=== PATIENT | male | born 1935 | race Caucasian/White ===

== ENCOUNTER 2020-08-15 08:03 | Inpatient (IN) | payer MEDICARE, BC ==
--- NOTE | 2020-08-15 08:06 | EDM.PDOC ---
ED HPI GENERAL MEDICAL PROBLEM - General Chief Complaint: Neuro Symptoms/Deficits Stated Complaint: EMT Time Seen by Provider: 08/15/20 08:04 Source of Information: Reports: Patient History Limitations: Reports: No Limitations - History of Present Illness INITIAL COMMENTS - FREE TEXT/NARRATIVE: Patient is a 84-year-old male who was brought in today for possible stroke. EMS states that patient states the patient got this morning and seemed confused he walked to the bathroom but could not find the bathroom. EMS arrived patient has some left-sided weakness upper and lower and left-sided facial droop. Patient cannot follow commands or answer questions for EMS transport. When patient got here again patient was not moving his left side not following commands but would occasionally speak and states certain phrases. Patient went on a CAT scan CAT scan performed did not see any acute findings order CTA. On the way back pt started having Movement left side and became more talkative. We took some time and spoke to the family about end-of-life care they are unclear about how they want to proceed and wanted to call and speak to the patient's son patient signed an answer phone we will attempt to continue to call at this moment patient will be full call but decision may change. We also discussed with family about TPA early in the course because we are not sure this is stroke and outpatient is moving all extremities TPA will be called off. - Related Data Allergies Allergy/AdvReac Type Severity Reaction Status Date / Time No Known Allergies Allergy Verified 08/15/20 08:19 Home Meds: Home Meds Lisinopril [Prinivil] 20 mg PO DAILY 05/25/16 [History] Simvastatin [Zocor] 40 mg PO DAILY 05/25/16 [History] Past Medical History HEENT History: Reports: Hard of Hearing, Other (See Below) Other HEENT History: Wears glasses. 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 Respiratory History: Reports: None Gastrointestinal History: Reports: None Genitourinary History: Reports: Prostate Disorder Other Genitourinary History: radical prostatectomy done by Dr Nice 6yrs ago Musculoskeletal History: Reports: None Neurological History: Reports: None Psychiatric History: Reports: None Endocrine/Metabolic History: Reports: None Hematologic History: Reports: None Immunologic History: Reports: None Oncologic (Cancer) History: Reports: Prostate Dermatologic History: Reports: None - Infectious Disease History Infectious Disease History: Reports: Chicken Pox, Measles, Mumps - Past Surgical History Cardiovascular Surgical History: Reports: Coronary Artery Bypass, Other (See Below) Social & Family History - Family History Family Medical History: No Pertinent Family History - Caffeine Use Caffeine Use: Reports: Coffee ED ROS GENERAL - Review of Systems Review Of Systems: Unable To Obtain Reason Not Obtained: mental status ED EXAM, NEURO - Physical Exam Exam: See Below Exam Limited By: Altered Mental Status General Appearance: Alert, No Apparent Distress Eye Exam: Bilateral Eye: EOMI, PERRL Throat/Mouth: Normal Inspection Head Exam: Atraumatic, Normocephalic Neck: Normal Inspection Respiratory/Chest: No Respiratory Distress, Lungs Clear, Normal Breath Sounds Cardiovascular: Normal Peripheral Pulses, Regular Rate, Rhythm GI/Abdominal: Normal Bowel Sounds, Soft, Non-Tender Neurological: Alert. No: Normal Gait, Tremor Extremities: Normal Inspection, Normal Range of Motion (strenght is now 5/5 since return ) #1 Interpretation EKG Date: 08/15/20 Time: 08:24 Rhythm: NSR Rate (Beats/Min): 73 ST-T: Normal Course - Vital Signs Last Recorded V/S: Last Vital Signs Temp 97.5 F 08/15/20 08:15 Pulse 72 08/15/20 11:30 Resp 15 08/15/20 11:30 BP 140/80 08/15/20 11:30 Pulse Ox 94 L 08/15/20 11:30 - Orders/Labs/Meds Orders: Medication Orders Acetaminophen (Acetaminophen 325 Mg Tab) 650 mg PO Q4H PRN PRN Reason: Pain (Mild 1-3)/fever Docusate Sodium (Docusate Sodium 100 Mg Cap) 100 mg PO BID PRN PRN Reason: Constipation Enoxaparin Sodium (Enoxaparin 40 Mg/0.4 Ml Syringe) 40 mg SUBCUT Q24H VA Ondansetron HCl (Ondansetron 4 Mg/2 Ml Sdv) 4 mg IVPUSH Q4H PRN PRN Reason: Nausea Sodium Chloride (Sodium Chloride 0.9% 2.5 Ml Syringe) 2.5 ml FLUSH ASDIRECTED PRN PRN Reason: Keep Vein Open Labs: Laboratory Tests 04/14/21 04/14/21 04/14/21 Range/Units 08:38 08:38 08:56 WBC 7.00 (4.0-11.0) K/uL RBC 5.25 (4.50-5.90) M/uL Hgb 15.6 (13.0-17.0) g/dL Hct 48.7 (38.0-50.0) % MCV 92.8 (80.0-98.0) fL MCH 29.7 (27.0-32.0) pg MCHC 32.0 (31.0-37.0) g/dL RDW Std Deviation 46.3 (28.0-62.0) fl RDW Coeff of Judy 14 (11.0-15.0) % Plt Count 168 (150-400) K/uL MPV 10.20 (7.40-12.00) fL Neut % (Auto) 78.3 (48.0-80.0) % Lymph % (Auto) 9.9 L (16.0-40.0) % [place] % (Auto) 11.1 (0.0-15.0) % Eos % (Auto) 0.6 (0.0-7.0) % Baso % (Auto) 0.1 (0.0-1.5) % Neut # (Auto) 5.5 (1.4-5.7) K/uL Lymph # (Auto) 0.7 (0.6-2.4) K/uL [place] # (Auto) 0.8 (0.0-0.8) K/uL Eos # (Auto) 0.0 (0.0-0.7) K/uL Baso # (Auto) 0.0 (0.0-0.1) K/uL Nucleated RBC % 0.0 /100WBC Nucleated RBCs # 0 K/uL INR APTT (18.6-31.3) SEC Sodium (136-148) mmol/L Potassium (3.5-5.1) mmol/L Chloride (98-107) mmol/L Carbon Dioxide (21.0-32.0) mmol/L BUN (7.0-18.0) mg/dL Creatinine (0.8-1.3) mg/dL Est Cr Clr Drug Dosing Estimated GFR (MDRD) ml/min Glucose (74-106) mg/dL Calcium (8.5-10.1) mg/dL Magnesium (1.8-2.4) mg/dL Total Bilirubin (0.2-1.0) mg/dL AST (15-37) IU/L ALT (14-63) IU/L Alkaline Phosphatase (46-116) U/L Troponin I (0.000-0.056) ng/mL Total Protein (6.4-8.2) g/dL Albumin (3.4-5.0) g/dL Globulin (2.6-4.0) g/dL Albumin/Globulin Ratio (0.9-1.6) Lipase (73-393) U/L Urine Color YELLOW Urine Appearance SLT CLOUDY Urine pH 5.5 (5.0-8.0) Ur Specific [place] 1.025 (1.001-1.035) Urine Protein 100 H (NEGATIVE) mg/dL Urine Glucose (UA) NEGATIVE (NEGATIVE) mg/dL Urine Ketones NEGATIVE (NEGATIVE) mg/dL Urine Occult Blood LARGE H (NEGATIVE) Urine Nitrite NEGATIVE (NEGATIVE) Urine Bilirubin NEGATIVE (NEGATIVE) Urine Urobilinogen 0.2 (<2.0) EU/dL Ur Leukocyte Esterase NEGATIVE (NEGATIVE) Urine RBC 1-4 (0-2/HPF) Urine WBC 0-2 (0-5/HPF) Ur Epithelial Cells RARE (NONE-FEW) Urine Bacteria FEW (NEGATIVE) Urine Mucus LIGHT (NONE-MOD) Urine Opiates Screen NEGATIVE (NEGATIVE) Ur Oxycodone Screen NEGATIVE (NEGATIVE) Urine Methadone Screen NEGATIVE (NEGATIVE) Ur Barbiturates Screen NEGATIVE (NEGATIVE) Ur Phencyclidine Scrn NEGATIVE (NEGATIVE) Ur Amphetamine Screen NEGATIVE (NEGATIVE) U Methamphetamines Scrn NEGATIVE (NEGATIVE) U Benzodiazepines Scrn NEGATIVE (NEGATIVE) U Cocaine Metab Screen NEGATIVE (NEGATIVE) U Marijuana (THC) Screen NEGATIVE (NEGATIVE) Ethyl Alcohol mg/dL SARS-CoV-2 RNA (BIJU) (NEGATIVE) 08/15/20 08/15/20 08/15/20 Range/Units 08:56 08:56 09:09 WBC (4.0-11.0) K/uL RBC (4.50-5.90) M/uL Hgb (13.0-17.0) g/dL Hct (38.0-50.0) % MCV (80.0-98.0) fL MCH (27.0-32.0) pg MCHC (31.0-37.0) g/dL RDW Std Deviation (28.0-62.0) fl RDW Coeff of Judy (11.0-15.0) % Plt Count (150-400) K/uL MPV (7.40-12.00) fL Neut % (Auto) (48.0-80.0) % Lymph % (Auto) (16.0-40.0) % [place] % (Auto) (0.0-15.0) % Eos % (Auto) (0.0-7.0) % Baso % (Auto) (0.0-1.5) % Neut # (Auto) (1.4-5.7) K/uL Lymph # (Auto) (0.6-2.4) K/uL [place] # (Auto) (0.0-0.8) K/uL Eos # (Auto) (0.0-0.7) K/uL Baso # (Auto) (0.0-0.1) K/uL Nucleated RBC % /100WBC Nucleated RBCs # K/uL INR 1.04 APTT 30.7 (18.6-31.3) SEC Sodium 137 (136-148) mmol/L Potassium 3.7 (3.5-5.1) mmol/L Chloride 104 (98-107) mmol/L Carbon Dioxide 22.8 (21.0-32.0) mmol/L BUN 49 H (7.0-18.0) mg/dL Creatinine 1.5 H (0.8-1.3) mg/dL Est Cr Clr Drug Dosing TNP Estimated GFR (MDRD) 44.7 ml/min Glucose 95 (74-106) mg/dL Calcium 7.9 L (8.5-10.1) mg/dL Magnesium 2.1 (1.8-2.4) mg/dL Total Bilirubin 0.9 (0.2-1.0) mg/dL AST 25 (15-37) IU/L ALT 29 (14-63) IU/L Alkaline Phosphatase 51 (46-116) U/L Troponin I < 0.050 (0.000-0.056) ng/mL Total Protein 6.7 (6.4-8.2) g/dL Albumin 3.2 L (3.4-5.0) g/dL Globulin 3.5 (2.6-4.0) g/dL Albumin/Globulin Ratio 0.9 (0.9-1.6) Lipase 169 (73-393) U/L Urine Color Urine Appearance Urine pH (5.0-8.0) Ur Specific [place] (1.001-1.035) Urine Protein (NEGATIVE) mg/dL Urine Glucose (UA) (NEGATIVE) mg/dL Urine Ketones (NEGATIVE) mg/dL Urine Occult Blood (NEGATIVE) Urine Nitrite (NEGATIVE) Urine Bilirubin (NEGATIVE) Urine Urobilinogen (<2.0) EU/dL Ur Leukocyte Esterase (NEGATIVE) Urine RBC (0-2/HPF) Urine WBC (0-5/HPF) Ur Epithelial Cells (NONE-FEW) Urine Bacteria (NEGATIVE) Urine Mucus (NONE-MOD) Urine Opiates Screen (NEGATIVE) Ur Oxycodone Screen (NEGATIVE) Urine Methadone Screen (NEGATIVE) Ur Barbiturates Screen (NEGATIVE) Ur Phencyclidine Scrn (NEGATIVE) Ur Amphetamine Screen (NEGATIVE) U Methamphetamines Scrn (NEGATIVE) U Benzodiazepines Scrn (NEGATIVE) U Cocaine Metab Screen (NEGATIVE) U Marijuana (THC) Screen (NEGATIVE) Ethyl Alcohol < 3.0 mg/dL SARS-CoV-2 RNA (BIJU) (NEGATIVE) 08/15/20 Range/Units 09:57 WBC (4.0-11.0) K/uL RBC (4.50-5.90) M/uL Hgb (13.0-17.0) g/dL Hct (38.0-50.0) % MCV (80.0-98.0) fL MCH (27.0-32.0) pg MCHC (31.0-37.0) g/dL RDW Std Deviation (28.0-62.0) fl RDW Coeff of Judy (11.0-15.0) % Plt Count (150-400) K/uL MPV (7.40-12.00) fL Neut % (Auto) (48.0-80.0) % Lymph % (Auto) (16.0-40.0) % [place] % (Auto) (0.0-15.0) % Eos % (Auto) (0.0-7.0) % Baso % (Auto) (0.0-1.5) % Neut # (Auto) (1.4-5.7) K/uL Lymph # (Auto) (0.6-2.4) K/uL [place] # (Auto) (0.0-0.8) K/uL Eos # (Auto) (0.0-0.7) K/uL Baso # (Auto) (0.0-0.1) K/uL Nucleated RBC % /100WBC Nucleated RBCs # K/uL INR APTT (18.6-31.3) SEC Sodium (136-148) mmol/L Potassium (3.5-5.1) mmol/L Chloride (98-107) mmol/L Carbon Dioxide (21.0-32.0) mmol/L BUN (7.0-18.0) mg/dL Creatinine (0.8-1.3) mg/dL Est Cr Clr Drug Dosing Estimated GFR (MDRD) ml/min Glucose (74-106) mg/dL Calcium (8.5-10.1) mg/dL Magnesium (1.8-2.4) mg/dL Total Bilirubin (0.2-1.0) mg/dL AST (15-37) IU/L ALT (14-63) IU/L Alkaline Phosphatase (46-116) U/L Troponin I (0.000-0.056) ng/mL Total Protein (6.4-8.2) g/dL Albumin (3.4-5.0) g/dL Globulin (2.6-4.0) g/dL Albumin/Globulin Ratio (0.9-1.6) Lipase (73-393) U/L Urine Color Urine Appearance Urine pH (5.0-8.0) Ur Specific [place] (1.001-1.035) Urine Protein (NEGATIVE) mg/dL Urine Glucose (UA) (NEGATIVE) mg/dL Urine Ketones (NEGATIVE) mg/dL Urine Occult Blood (NEGATIVE) Urine Nitrite (NEGATIVE) Urine Bilirubin (NEGATIVE) Urine Urobilinogen (<2.0) EU/dL Ur Leukocyte Esterase (NEGATIVE) Urine RBC (0-2/HPF) Urine WBC (0-5/HPF) Ur Epithelial Cells (NONE-FEW) Urine Bacteria (NEGATIVE) Urine Mucus (NONE-MOD) Urine Opiates Screen (NEGATIVE) Ur Oxycodone Screen (NEGATIVE) Urine Methadone Screen (NEGATIVE) Ur Barbiturates Screen (NEGATIVE) Ur Phencyclidine Scrn (NEGATIVE) Ur Amphetamine Screen (NEGATIVE) U Methamphetamines Scrn (NEGATIVE) U Benzodiazepines Scrn (NEGATIVE) U Cocaine Metab Screen (NEGATIVE) U Marijuana (THC) Screen (NEGATIVE) Ethyl Alcohol mg/dL SARS-CoV-2 RNA (BIJU) NEGATIVE (NEGATIVE) Meds: Medications Generic Name Dose Route Start Last Admin Trade Name Freq PRN Reason Stop Dose Admin Acetaminophen 650 mg 08/15/20 12:10 Acetaminophen 325 Mg Tab PO Q4H PRN Pain (Mild 1-3)/fever Docusate Sodium 100 mg 08/15/20 12:10 Docusate Sodium 100 Mg Cap PO BID PRN Constipation Enoxaparin Sodium 40 mg 08/15/20 12:30 Enoxaparin 40 Mg/0.4 Ml Syringe SUBCUT Q24H VA Ondansetron HCl 4 mg 08/15/20 12:10 Ondansetron 4 Mg/2 Ml Sdv IVPUSH Q4H PRN Nausea Sodium Chloride 2.5 ml 08/15/20 12:10 Sodium Chloride 0.9% 2.5 Ml Syringe FLUSH ASDIRECTED PRN Keep Vein Open Discontinued Medications Generic Name Dose Route Start Last Admin Trade Name Freq PRN Reason Stop Dose Admin Iopamidol 100 ml 08/15/20 09:59 08/15/20 10:00 Iopamidol 755 Mg/Ml 500 Ml Multipack Bottle IVPUSH 08/15/20 10:00 100 ml ONETIME STA Administration Departure - Departure Time of Disposition: 12:25 Disposition: Refer to Observation Clinical Impression: TIA (transient ischemic attack) - Discharge Information *PRESCRIPTION DRUG MONITORING PROGRAM REVIEWED*: Not Applicable *COPY OF PRESCRIPTION DRUG MONITORING REPORT IN PATIENT GIRISH: Not Applicable Sepsis Event Note (ED) - Focused Exam Vital Signs: Vital Signs Temp Pulse Resp BP Pulse Ox 08/15/20 10:15 72 15 144/86 H 98 08/15/20 09:45 69 17 118/70 95 08/15/20 09:30 70 15 141/79 H 97 08/15/20 09:16 88 15 124/66 97 08/15/20 09:00 73 15 148/85 H 96 08/15/20 08:45 71 17 153/85 H 99 08/15/20 08:30 74 15 169/86 H 96 08/15/20 08:15 97.5 F 75 17 157/81 H 93 L - Assessment/Plan Plan: Patient is a 4-year-old male who presents today for social call. Patient has some left-sided weakness. However after CAT scan patient seems now be back at his baseline. Patient does have history of dementia per family. Patient moves all extremities has good strength. Unclear this is a TIA or possible UTI we will continue to get labs and reassess.
--- NOTE | 2020-08-15 08:20 | CT ---
INDICATION: The mental status. TECHNIQUE: CT head without contrast. COMPARISON: None. FINDINGS: CSF spaces: Within normal limits for age. Brain parenchyma and extra-axial spaces: The handley-white differentiation is normal. No sign of mass, hemorrhage, or midline shift. No extra-axial fluid collection. Skull base and calvarium: The visualized paranasal sinuses and mastoid air cells demonstrate no acute or significant findings. The visualized orbits are grossly unremarkable. No skull fractures. IMPRESSION: Unremarkable noncontrast head CT. Please note that all CT scans at this facility use dose modulation, iterative reconstruction, and/or weight-based dosing when appropriate to reduce radiation dose to as low as reasonably achievable. Dictated by Vince Mandujano MD @ Aug 15 2020 8:12AM Signed by Dr. Vince Mandujano @ Aug 15 2020 8:19AM
--- NOTE | 2020-08-15 09:15 | CT ---
DATE: 08/15/2020 CLINICAL HISTORY: Patient with altered mental status. TECHNIQUE: Standard helical CT image acquisition through the head and neck was performed after intravenous contrast bolus enhancement. Multiplanar reconstructed images were performed and interpreted. COMPARISON: CT same day FINDINGS: There is no proximal intracranial large vessel occlusion. There is diffuse intracranial atherosclerosis. 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 The origins of the great vessels from the aortic arch are patent. The origin of the right vertebral artery is patent. The origin of the left vertebral artery is patent. The common carotid arteries are patent There is a mild (<50%) stenosis at the origin of the right internal carotid artery by NASCET criteria. This is caused by calcified plaque with a <2mm residual lumen. There is a mild (<50%) stenosis at the origin of the left internal carotid artery by NASCET criteria. This is caused by calcified plaque with a <2mm residual lumen. The rest of the cervical segments of the internal carotid arteries are patent up to their intracranial segments. The intracranial segments of the internal carotid arteries are patent. The right vertebral artery is dominant. The cervical segments of the vertebral arteries are patent. The intracranial segments of the vertebral arteries are patent. The visualized lung apices are unremarkable The thyroid gland is unremarkable. The soft tissues of the neck are unremarkable. There are degenerative changes in the cervical spine. IMPRESSION: 1. No proximal intracranial large vessel occlusion. 2. Diffuse intracranial atherosclerosis. 3. Mild (<50%) stenosis at the origins of the internal carotid arteries bilaterally. Please note that all CT scans at this facility use dose modulation, iterative reconstruction, and/or weight-based dosing when appropriate to reduce radiation dose to as low as reasonably achievable. Dictated by Floresita Montelongo MD @ Aug 15 2020 8:58AM Signed by Dr. Floresita Montelongo @ Aug 15 2020 9:13AM
[2020-08-15 09:27] LABS: BLOOD UREA NITROGEN,BUN 49 mg/dL (7.0-18.0); CARBON DIOXIDE,CO2 22.8 mmol/L (21.0-32.0); CHLORIDE,CL 104 mmol/L (98-107); GLUCOSE RANDOM 95 mg/dL (74-106); LIPASE 169 U/L (73-393); POTASSIUM,K 3.7 mmol/L (3.5-5.1); SODIUM,NA 137 mmol/L (136-148)
--- NOTE | 2020-08-15 09:36 | CR ---
HISTORY: Stroke. TECHNIQUE: Portable frontal view of the chest. COMPARISON: None. FINDINGS: Left hemidiaphragm is elevated. Left basilar atelectasis. No airspace consolidation. No pleural effusion or pneumothorax. Pulmonary vasculature is within normal limits. Sternal wires. Cardiomediastinal silhouette size is within normal limits for technique. IMPRESSION: Elevated left hemidiaphragm with left basilar atelectasis. Dictated by Greg Riggs MD @ Aug 15 2020 9:33AM Signed by Dr. Greg Riggs @ Aug 15 2020 9:33AM
[2020-08-15] MEDS ORDERED: Iopamidol 755 MG/ML 500 ML Multipack Bottle IVPUSH STA (09:59)
[2020-08-15] MEDS ORDERED: Ondansetron 4 MG/2 ML SDV IVPUSH PRN (12:10)
[2020-08-15] MEDS ORDERED: Acetaminophen 325 MG Tab PO PRN (12:10)
[2020-08-15] MEDS ORDERED: Sodium Chloride 0.9% 2.5 ML Syringe FLUSH PRN (12:10)
[2020-08-15] MEDS ORDERED: Gadobenate Dimeglumine 529 MG/ML 20 ML SDV IVPUSH STA (12:42)
[2020-08-15 12:50] LABS: HEMOGLOBIN A1C 6.1 %
--- NOTE | 2020-08-15 12:55 | PCM.HP.2 ---
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 When patient arrived to the ER he was unable to follow commands or answer questions. The noted he was at his baseline around 7:00 and around 745 is when these symptoms are noted. Patient was sent to CT for evaluation. By the time he was returning back to the ER he was nearly back to normal moving all extremities and speaking. Patient does have history of dementia. reports that she woke up early this morning around 7 and noticed that he was standing straight at the door closed. She asked him what he was doing and he reported that he was going to the bathroom even though the bathroom was behind him. She got up and helped him to the bathroom and he just seemed not himself and confused. She said they got him back to bed and then she called the ambulance. The ambulance crew was the one who noticed a left-sided weakness. Gabe is a poor historian and denies any concerns at happened this morning and is unaware of any confusion or weakness that happened this morning. He denies current chest pain shortness of breath fevers chills palpitations. He denies any concerns with abdominal pain urinary troubles or black or bloody stools. The did report mild diarrhea the past couple days but nothing significant. He does report bilateral hip pain that has been nagging him for few months. The does report he has fallen recently patient is uncertain if he fell on one hip or not but has been ambulatory at home with his walker. Patient reports tobacco use in his 20s but has not used anything since. Rare alcohol use and no recreational drug use. In the ER lab work essentially within normal limits. CBC normal. INR 1.04 so dium 137, potassium 3.7, BUN 49, creatinine 1.5 which is at baseline. Glucose 95 AST ALT and bilirubin all within normal limits troponin negative. Lipase 169. EKG in the ER obtained which revealed sinus rhythm with no ST or T wave changes heart rate 73. Chest x-ray obtained showed elevation of left hemidiaphragm with left basilar atelectasis. Head CT obtained for stroke protocol which revealed no intracranial abnormalities. CTA of head and neck obtained to further rule out thrombotic stroke. Head CT revealed no proximal intracranial large vessel occlusion. Diffuse intracranial atherosclerosis. Common carotid arteries are patent. There is mild less than 50% stenosis at the origins of the internal carotid arteries bilaterally. Patient was ruled out for TPA as he became normal within the ER. There was discussion among family if he would want this or if the POA who is the son would want this. The son was contacted but unsure of decision at this time. Patient will be admitted for TIA possible CVA work-up. PCP Dr. العراقي - Related Data Allergies/Adverse Reactions: Allergies Allergy/AdvReac Type Severity Reaction Status Date / Time No Known Allergies Allergy Verified 08/15/20 14:31 Home Medications: Home Meds Lisinopril [Prinivil] 20 mg PO DAILY 05/25/16 [History] Simvastatin [Zocor] 40 mg PO DAILY 05/25/16 [History] Past Medical History HEENT History: Reports: Hard of Hearing, Other (See Below) Other HEENT History: Wears glasses. right hearing aid Cardiovascular History: Reports: Bypass, CAD, High Cholesterol, Hypertension, SOB on Exertion. Denies: Afib, Blood Clots/VTE/DVT Other Cardiovascular History: quad bypass 20 yrs ago Respiratory History: Reports: None. Denies: COPD Gastrointestinal History: Reports: None. Denies: GI Bleed Genitourinary History: Reports: Prostate Disorder Other Genitourinary History: radical prostatectomy done by Dr Nice 6yrs ago Musculoskeletal History: Reports: None Neurological History: Reports: None Psychiatric History: Reports: None Endocrine/Metabolic History: Reports: None Hematologic History: Reports: None Immunologic History: Reports: None Oncologic (Cancer) History: Reports: Prostate Dermatologic History: Reports: None - Infectious Disease History Infectious Disease History: Reports: Chicken Pox, Measles, Mumps - Past Surgical History Head Surgeries/Procedures: Reports: None HEENT Surgical History: Reports: None Cardiovascular Surgical History: Reports: Coronary Artery Bypass, Other (See Below) Other Cardiovascular Surgeries/Procedures: Quadruple bypass GI Surgical History: Reports: None Male Surgical History: Reports: Prostatectomy Endocrine Surgical History: Reports: None Neurological Surgical History: Reports: None Musculoskeletal Surgical History: Reports: None Dermatological Surgical History: Reports: None Social & Family History - Family History Family Medical History: No Pertinent Family History - Tobacco Use Tobacco Use Status *Q: Never Tobacco User - Caffeine Use Caffeine Use: Reports: Coffee - Alcohol Use Alcohol Use Frequency: Rarely - Recreational Drug Use Recreational Drug Use: No - Living Situation & Occupation Living situation: Reports: Occupation: Retired ([employer]) H&P Review of Systems - Review of Systems: Review Of Systems: See Below General: Reports: Weakness (Generalized). Denies: Fever, Chills, Malaise, Fatigue HEENT: Reports: No Symptoms. Denies: Headaches, Sinus Congestion, Sore Throat, Vertigo Pulmonary: Reports: No Symptoms. Denies: Shortness of Breath Cardiovascular: Reports: No Symptoms. Denies: Chest Pain Gastrointestinal: Reports: No Symptoms. Denies: Abdominal Pain, Black Stool, Bloody Stool, Nausea, Vomiting Genitourinary: Reports: No Symptoms. Denies: Dysuria, Frequency Musculoskeletal: Reports: Joint Pain (Bilateral hip pain with movement) Skin: Reports: No Symptoms. Denies: Wound Psychiatric: Reports: No Symptoms. Denies: Anxiety Neurological: Reports: Difficulty Walking (Slight unsteady gait). Denies: Confusion, Tremors, Trouble Speaking Hematologic/Lymphatic: Reports: No Symptoms Immunologic: Reports: No Symptoms Exam - Exam Exam: See Below - Vital Signs Vital Signs: Last Vital Signs Temp 97.5 F 08/15/20 08:15 Pulse 72 08/15/20 11:30 Resp 15 08/15/20 11:30 BP 140/80 08/15/20 11:30 Pulse Ox 94 L 08/15/20 11:30 Weight: 90 kg - Exam Quality Assessment: DVT Prophylaxis. No: Supplemental Oxygen General: Alert, Oriented, Cooperative HEENT: Conjunctiva Clear, Mucosa Moist & [place], Posterior Pharynx Clear Lungs: Clear to Auscultation, Normal Respiratory Effort Cardiovascular: Regular Rate, Regular Rhythm GI/Abdominal Exam: Normal Bowel Sounds, Soft, Non-Tender Extremities: Normal Inspection, Normal Range of Motion, Non-Tender, No Pedal Edema Skin: Warm, Dry Neurological: Cranial Nerves Intact, Strength Equal Bilateral, Normal Speech, Normal Tone. No: Normal Gait (Slight unsteady gait but otherwise normal) Neuro Extensive - Mental Status: Alert, Oriented x3, Normal Mood/Affect Neuro Extensive - Motor, Sensory, Reflexes: CN II-XII Intact. No: Pronator Drift (R), Pronator Drift (L), Abnormal Finger to Nose Psychiatric: Alert, Normal Affect, Normal Mood - Patient Data Lab Results Last 24 hrs: Laboratory Results - last 24 hr 08/15/20 08/15/20 08/15/20 Range/Units 08:38 08:38 08:56 WBC 7.00 (4.0-11.0) K/uL RBC 5.25 (4.50-5.90) M/uL Hgb 15.6 (13.0-17.0) g/dL Hct 48.7 (38.0-50.0) % MCV 92.8 (80.0-98.0) fL MCH 29.7 (27.0-32.0) pg MCHC 32.0 (31.0-37.0) g/dL RDW Std Deviation 46.3 (28.0-62.0) fl RDW Coeff of Judy 14 (11.0-15.0) % Plt Count 168 (150-400) K/uL MPV 10.20 (7.40-12.00) fL Neut % (Auto) 78.3 (48.0-80.0) % Lymph % (Auto) 9.9 L (16.0-40.0) % [place] % (Auto) 11.1 (0.0-15.0) % Eos % (Auto) 0.6 (0.0-7.0) % Baso % (Auto) 0.1 (0.0-1.5) % Neut # (Auto) 5.5 (1.4-5.7) K/uL Lymph # (Auto) 0.7 (0.6-2.4) K/uL [place] # (Auto) 0.8 (0.0-0.8) K/uL Eos # (Auto) 0.0 (0.0-0.7) K/uL Baso # (Auto) 0.0 (0.0-0.1) K/uL Nucleated RBC % 0.0 /100WBC Nucleated RBCs # 0 K/uL INR APTT (18.6-31.3) SEC Sodium (136-148) mmol/L Potassium (3.5-5.1) mmol/L Chloride (98-107) mmol/L Carbon Dioxide (21.0-32.0) mmol/L BUN (7.0-18.0) mg/dL Creatinine (0.8-1.3) mg/dL Est Cr Clr Drug Dosing Estimated GFR (MDRD) ml/min Glucose (74-106) mg/dL Calcium (8.5-10.1) mg/dL Magnesium (1.8-2.4) mg/dL Total Bilirubin (0.2-1.0) mg/dL AST (15-37) IU/L ALT (14-63) IU/L Alkaline Phosphatase (46-116) U/L Troponin I (0.000-0.056) ng/mL Total Protein (6.4-8.2) g/dL Albumin (3.4-5.0) g/dL Globulin (2.6-4.0) g/dL Albumin/Globulin Ratio (0.9-1.6) Lipase (73-393) U/L Urine Color YELLOW Urine Appearance SLT CLOUDY Urine pH 5.5 (5.0-8.0) Ur Specific [place] 1.025 (1.001-1.035) Urine Protein 100 H (NEGATIVE) mg/dL Urine Glucose (UA) NEGATIVE (NEGATIVE) mg/dL Urine Ketones NEGATIVE (NEGATIVE) mg/dL Urine Occult Blood LARGE H (NEGATIVE) Urine Nitrite NEGATIVE (NEGATIVE) Urine Bilirubin NEGATIVE (NEGATIVE) Urine Urobilinogen 0.2 (<2.0) EU/dL Ur Leukocyte Esterase NEGATIVE (NEGATIVE) Urine RBC 1-4 (0-2/HPF) Urine WBC 0-2 (0-5/HPF) Ur Epithelial Cells RARE (NONE-FEW) Urine Bacteria FEW (NEGATIVE) Urine Mucus LIGHT (NONE-MOD) Urine Opiates Screen NEGATIVE (NEGATIVE) Ur Oxycodone Screen NEGATIVE (NEGATIVE) Urine Methadone Screen NEGATIVE (NEGATIVE) Ur Barbiturates Screen NEGATIVE (NEGATIVE) Ur Phencyclidine Scrn NEGATIVE (NEGATIVE) Ur Amphetamine Screen NEGATIVE (NEGATIVE) U Methamphetamines Scrn NEGATIVE (NEGATIVE) U Benzodiazepines Scrn NEGATIVE (NEGATIVE) U Cocaine Metab Screen NEGATIVE (NEGATIVE) U Marijuana (THC) Screen NEGATIVE (NEGATIVE) Ethyl Alcohol mg/dL SARS-CoV-2 RNA (BIJU) (NEGATIVE) 08/15/20 08/15/20 08/15/20 Range/Units 08:56 08:56 09:09 WBC (4.0-11.0) K/uL RBC (4.50-5.90) M/uL Hgb (13.0-17.0) g/dL Hct (38.0-50.0) % MCV (80.0-98.0) fL MCH (27.0-32.0) pg MCHC (31.0-37.0) g/dL RDW Std Deviation (28.0-62.0) fl RDW Coeff of Judy (11.0-15.0) % Plt Count (150-400) K/uL MPV (7.40-12.00) fL Neut % (Auto) (48.0-80.0) % Lymph % (Auto) (16.0-40.0) % [place] % (Auto) (0.0-15.0) % Eos % (Auto) (0.0-7.0) % Baso % (Auto) (0.0-1.5) % Neut # (Auto) (1.4-5.7) K/uL Lymph # (Auto) (0.6-2.4) K/uL [place] # (Auto) (0.0-0.8) K/uL Eos # (Auto) (0.0-0.7) K/uL Baso # (Auto) (0.0-0.1) K/uL Nucleated RBC % /100WBC Nucleated RBCs # K/uL INR 1.04 APTT 30.7 (18.6-31.3) SEC Sodium 137 (136-148) mmol/L Potassium 3.7 (3.5-5.1) mmol/L Chloride 104 (98-107) mmol/L Carbon Dioxide 22.8 (21.0-32.0) mmol/L BUN 49 H (7.0-18.0) mg/dL Creatinine 1.5 H (0.8-1.3) mg/dL Est Cr Clr Drug Dosing TNP Estimated GFR (MDRD) 44.7 ml/min Glucose 95 (74-106) mg/dL Calcium 7.9 L (8.5-10.1) mg/dL Magnesium 2.1 (1.8-2.4) mg/dL Total Bilirubin 0.9 (0.2-1.0) mg/dL AST 25 (15-37) IU/L ALT 29 (14-63) IU/L Alkaline Phosphatase 51 (46-116) U/L Troponin I < 0.050 (0.000-0.056) ng/mL Total Protein 6.7 (6.4-8.2) g/dL Albumin 3.2 L (3.4-5.0) g/dL Globulin 3.5 (2.6-4.0) g/dL Albumin/Globulin Ratio 0.9 (0.9-1.6) Lipase 169 (73-393) U/L Urine Color Urine Appearance Urine pH (5.0-8.0) Ur Specific [place] (1.001-1.035) Urine Protein (NEGATIVE) mg/dL Urine Glucose (UA) (NEGATIVE) mg/dL Urine Ketones (NEGATIVE) mg/dL Urine Occult Blood (NEGATIVE) Urine Nitrite (NEGATIVE) Urine Bilirubin (NEGATIVE) Urine Urobilinogen (<2.0) EU/dL Ur Leukocyte Esterase (NEGATIVE) Urine RBC (0-2/HPF) Urine WBC (0-5/HPF) Ur Epithelial Cells (NONE-FEW) Urine Bacteria (NEGATIVE) Urine Mucus (NONE-MOD) Urine Opiates Screen (NEGATIVE) Ur Oxycodone Screen (NEGATIVE) Urine Methadone Screen (NEGATIVE) Ur Barbiturates Screen (NEGATIVE) Ur Phencyclidine Scrn (NEGATIVE) Ur Amphetamine Screen (NEGATIVE) U Methamphetamines Scrn (NEGATIVE) U Benzodiazepines Scrn (NEGATIVE) U Cocaine Metab Screen (NEGATIVE) U Marijuana (THC) Screen (NEGATIVE) Ethyl Alcohol < 3.0 mg/dL SARS-CoV-2 RNA (BIJU) (NEGATIVE) 08/15/20 Range/Units 09:57 WBC (4.0-11.0) K/uL RBC (4.50-5.90) M/uL Hgb (13.0-17.0) g/dL Hct (38.0-50.0) % MCV (80.0-98.0) fL MCH (27.0-32.0) pg MCHC (31.0-37.0) g/dL RDW Std Deviation (28.0-62.0) fl RDW Coeff of Judy (11.0-15.0) % Plt Count (150-400) K/uL MPV (7.40-12.00) fL Neut % (Auto) (48.0-80.0) % Lymph % (Auto) (16.0-40.0) % [place] % (Auto) (0.0-15.0) % Eos % (Auto) (0.0-7.0) % Baso % (Auto) (0.0-1.5) % Neut # (Auto) (1.4-5.7) K/uL Lymph # (Auto) (0.6-2.4) K/uL [place] # (Auto) (0.0-0.8) K/uL Eos # (Auto) (0.0-0.7) K/uL Baso # (Auto) (0.0-0.1) K/uL Nucleated RBC % /100WBC Nucleated RBCs # K/uL INR APTT (18.6-31.3) SEC Sodium (136-148) mmol/L Potassium (3.5-5.1) mmol/L Chloride (98-107) mmol/L Carbon Dioxide (21.0-32.0) mmol/L BUN (7.0-18.0) mg/dL Creatinine (0.8-1.3) mg/dL Est Cr Clr Drug Dosing Estimated GFR (MDRD) ml/min Glucose (74-106) mg/dL Calcium (8.5-10.1) mg/dL Magnesium (1.8-2.4) mg/dL Total Bilirubin (0.2-1.0) mg/dL AST (15-37) IU/L ALT (14-63) IU/L Alkaline Phosphatase (46-116) U/L Troponin I (0.000-0.056) ng/mL Total Protein (6.4-8.2) g/dL Albumin (3.4-5.0) g/dL Globulin (2.6-4.0) g/dL Albumin/Globulin Ratio (0.9-1.6) Lipase (73-393) U/L Urine Color Urine Appearance Urine pH (5.0-8.0) Ur Specific [place] (1.001-1.035) Urine Protein (NEGATIVE) mg/dL Urine Glucose (UA) (NEGATIVE) mg/dL Urine Ketones (NEGATIVE) mg/dL Urine Occult Blood (NEGATIVE) Urine Nitrite (NEGATIVE) Urine Bilirubin (NEGATIVE) Urine Urobilinogen (<2.0) EU/dL Ur Leukocyte Esterase (NEGATIVE) Urine RBC (0-2/HPF) Urine WBC (0-5/HPF) Ur Epithelial Cells (NONE-FEW) Urine Bacteria (NEGATIVE) Urine Mucus (NONE-MOD) Urine Opiates Screen (NEGATIVE) Ur Oxycodone Screen (NEGATIVE) Urine Methadone Screen (NEGATIVE) Ur Barbiturates Screen (NEGATIVE) Ur Phencyclidine Scrn (NEGATIVE) Ur Amphetamine Screen (NEGATIVE) U Methamphetamines Scrn (NEGATIVE) U Benzodiazepines Scrn (NEGATIVE) U Cocaine Metab Screen (NEGATIVE) U Marijuana (THC) Screen (NEGATIVE) Ethyl Alcohol mg/dL SARS-CoV-2 RNA (BIJU) NEGATIVE (NEGATIVE) Result Diagrams: 08/15/20 08:56 08/15/20 08:56 Sepsis Event Note - Evaluation Sepsis Screening Result: No Definite Risk - Focused Exam Vital Signs: Vital Signs Temp Pulse Resp BP Pulse Ox 08/15/20 11:30 72 15 140/80 94 L 08/15/20 10:45 69 16 139/84 95 08/15/20 10:15 72 15 144/86 H 98 08/15/20 09:45 69 17 118/70 95 08/15/20 09:30 70 15 141/79 H 97 08/15/20 09:16 88 15 124/66 97 08/15/20 09:00 73 15 148/85 H 96 08/15/20 08:45 71 17 153/85 H 99 08/15/20 08:30 74 15 169/86 H 96 08/15/20 08:15 97.5 F 75 17 157/81 H 93 L - Problem List (1) TIA (transient ischemic attack) SNOMED Code(s): 483018136 ICD Code: G45.9 - TRANSIENT CEREBRAL ISCHEMIC ATTACK, UNSPECIFIED Status: Acute Current Visit: Yes (2) CVA (cerebral vascular accident) SNOMED Code(s): 389842615 ICD Code: I63.9 - CEREBRAL INFARCTION, UNSPECIFIED Status: Suspected Current Visit: Yes (3) HTN (hypertension) SNOMED Code(s): 60187342 ICD Code: I10 - ESSENTIAL (PRIMARY) HYPERTENSION Status: Chronic Current Visit: Yes (4) History of coronary artery bypass graft SNOMED Code(s): 168946398, 488723259 ICD Code: Z95.1 - PRESENCE OF AORTOCORONARY BYPASS GRAFT Status: Chronic Current Visit: Yes (5) HLD (hyperlipidemia) SNOMED Code(s): 70406407 ICD Code: E78.5 - HYPERLIPIDEMIA, UNSPECIFIED Status: Chronic Current Visit: Yes (6) CAD (coronary artery disease) SNOMED Code(s): 45794634 ICD Code: I25.10 - ATHSCL HEART DISEASE OF [place] CORONARY ARTERY W/O ANG PCTRS Status: Chronic Current Visit: Yes (7) Dementia SNOMED Code(s): 14853286 ICD Code: F03.90 - UNSPECIFIED DEMENTIA WITHOUT BEHAVIORAL DISTURBANCE Status: Chronic Current Visit: Yes (8) History of radical prostatectomy SNOMED Code(s): 719964112038247, 609860575074455 ICD Code: Z90.79 - ACQUIRED ABSENCE OF OTHER GENITAL ORGAN(S) Status: Chronic Current Visit: Yes Problem List Initiated/Reviewed/Updated: Yes Orders Last 24hrs: Active Orders 24 hr Category Date Time Status Patient Status [ADT] Routine ADT 08/15/20 10:27 Active Height and Weight [RC] DAILY Care 08/15/20 12:10 Active Intake and Output [RC] QSHIFT Care 08/15/20 12:10 Active Nursing Bedside Swallow Screen [RC] ASDIRECTED Care 08/15/20 12:17 Active Oxygen Therapy [RC] PRN Care 08/15/20 12:10 Active Telemetry Monitoring [Cardiac Monitoring] [RC] . Care 08/15/20 12:16 Active DIRECTED Up With Assistance [RC] ASDIRECTED Care 08/15/20 12:10 Active VTE/DVT Education [RC] PER UNIT ROUTINE Care 08/15/20 12:10 Active Vital Signs [RC] Q4H Care 08/15/20 12:10 Active Heart Healthy Diet [DIET] Diet 08/15/20 Lunch Active Brain w wo Cont [MR] Routine Exams 08/15/20 12:08 Ordered Echo Comp wo Cont [US] Routine Exams 08/15/20 12:17 Ordered BASIC METABOLIC PANEL,BMP [CHEM] AM Lab 08/16/20 05:11 Ordered CBC WITH AUTO DIFF [HEME] AM Lab 08/16/20 05:11 Ordered GLYCOSYLATED HEMOGLOBIN,HGBA1C [CHEM] Routine Lab 08/15/20 08:56 Received LIPID PANEL [CHEM] AM Lab 08/16/20 05:11 Ordered MAGNESIUM [CHEM] AM Lab 08/16/20 05:11 Ordered TSH [CHEM] Routine Lab 08/15/20 12:45 Ordered Acetaminophen [TylenoL] Med 08/15/20 12:10 Active 650 mg PO Q4H PRN Docusate Sodium [Colace] Med 08/15/20 12:10 Active 100 mg PO BID PRN Enoxaparin [Lovenox] Med 08/15/20 12:30 Active 40 mg SUBCUT Q24H Ondansetron [Zofran] Med 08/15/20 12:10 Active 4 mg IVPUSH Q4H PRN Sodium Chloride 0.9% [Saline Flush] Med 08/15/20 12:10 Active 2.5 ml FLUSH ASDIRECTED PRN Saline Lock Insert [OM.PC] Routine Oth 08/15/20 12:10 Ordered Medication Orders Acetaminophen (Acetaminophen 325 Mg Tab) 650 mg PO Q4H PRN PRN Reason: Pain (Mild 1-3)/fever Docusate Sodium (Docusate Sodium 100 Mg Cap) 100 mg PO BID PRN PRN Reason: Constipation Enoxaparin Sodium (Enoxaparin 40 Mg/0.4 Ml Syringe) 40 mg SUBCUT Q24H VA Ondansetron HCl (Ondansetron 4 Mg/2 Ml Sdv) 4 mg IVPUSH Q4H PRN PRN Reason: Nausea Sodium Chloride (Sodium Chloride 0.9% 2.5 Ml Syringe) 2.5 ml FLUSH ASDIRECTED PRN PRN Reason: Keep Vein Open Assessment/Plan Comment:: This 84-year-old male admitted with TIA, possible CVA. 1. TIA, possible CVA -We will order brain MRI with and without contrast to further evaluate for acute stroke -We will order echo, transthoracic -Obtain TSH, lipid and A1c -Monitor on telemetry to evaluate for arrhythmia -Allow for permissive hypertension -ASA 325 now and then 81 daily daily -Neurochecks every 4 hours -Bedside swallow eval per nursing 2. Bilateral hip pain - reports recent fall due to unsteady gait -We will obtain bilateral hip and pelvis x-rays 3. History HTN, CAD -Continue statin -Add aspirin -Allow for permissive hypertension with possible CVA VTE prophylaxis: Lovenox CODE STATUS DNR/DNI, discussed further aggressive measures with and patient especially the use of TPA if recurrent stroke were to occur. They are uncertain if they would want this but they will think about it and let us know. Dispo 1 to 2 days.
[2020-08-15] MEDS: Enoxaparin 40 MG/0.4 ML Syringe SUBCUT SCH (14:03)
--- NOTE | 2020-08-15 14:10 | MR ---
Indication: Left-sided weakness. Technique: T1 sagittal as well as diffusion, FLAIR and T2 axial sequences were obtained. Post gadolinium T1 sequences were obtained. Contrast: 17 cc MultiHance. Comparison: 10/08/2016. Findings: No acute infarct or restricted diffusion is identified. No mass lesion or ventricular obstruction. No evidence for abnormal gadolinium enhancement involving the meninges, calvarium or skull base. Small foci of susceptibility artifact are again noted in the right cerebellum and right occipital lobe, compatible with micro hemorrhages. Differential possibilities include hypertension and amyloid angiopathy. These are stable from 10/08/2016. No evidence for recent hemorrhage. A few tiny foci of T2 signal abnormality are scattered in the white matter of the cerebral hemispheres, typical for mild small vessel ischemic change and stable from 10/08/2016. Mild symmetric cerebral atrophy is also unchanged. Grossly normal flow voids are maintained in the directly imaged intracranial vascular structures. The craniovertebral junction is unremarkable, with a patent foramen magnum. Both temporal bones are clear. The paranasal sinuses are essentially clear. Impression: 1. No evident change from 10/08/2016. 2. No acute pathology identified. No evidence for mass, hemorrhage, recent infarct or pathologic gadolinium enhancement. 3. Mild small vessel ischemic changes and mild cerebral atrophy are stable from 10/08/2016. Dictated by Flaquito Loja MD @ Aug 15 2020 1:55PM Signed by Dr. Flaquito Loja @ Aug 15 2020 2:09PM
[2020-08-15] MEDS ORDERED: Aspirin 325 MG Tab PO ONE (14:23)
[2020-08-15] MEDS ORDERED: Labetalol 100 MG/20 ML MDV IVPUSH PRN (14:23)
[2020-08-15] MEDS: Simvastatin 40 MG Tab PO SCH (20:32)
[2020-08-16 07:13] LABS: CARBON DIOXIDE,CO2 20.9 mmol/L (21.0-32.0); POTASSIUM,K 3.5 mmol/L (3.5-5.1)
[2020-08-16] MEDS ORDERED: Lisinopril 10 MG Tab PO SCH (09:00)
[2020-08-16] MEDS: Aspirin 81 MG Tab.EC PO SCH (09:18)
--- NOTE | 2020-08-16 09:26 | CR ---
Indication: Trauma, fall with bilateral hip pain Technique: Pelvis and bilateral hip 5 views Comparison: None Findings: Bones: Alignment is normal. No fractures or bone lesions. Joint spaces: Moderate bilateral hip joint osteoarthritis. Soft tissues: Unremarkable. Impression: No sign of acute injury. There is moderate bilateral hip joint arthritis. Dictated by Vince Mandujano MD @ Aug 16 2020 9:14AM Signed by Dr. Vince Mandujano @ Aug 16 2020 9:24AM
[2020-08-16] MEDS ORDERED: Sodium Chloride 0.9% 1,000 ML IV ONE (10:43)
--- NOTE | 2020-08-16 10:43 | PCM.PN ---
- General Info Date of Service: 08/16/20 Admission Dx/Problem (Free Text): Admission Diagnosis/Problem Admission Diagnosis/Problem TIA, Transient ischemic attack Subjective Update: Reports he is not feeling as perky today. Denies any chest pain shortness of breath or palpitations. No abdominal pain. He reports hips are feeling better today. Does report that he feels slightly dizzy when he gets up and ambulates. Nursing has reported many episodes that he has become dizzy and lightheaded after walking. Functional Status: Reports: Pain Controlled, Tolerating Diet, Ambulating, Urinating - Review of Systems General: Reports: No Symptoms. Denies: Fever, Weakness, Fatigue HEENT: Reports: No Symptoms. Denies: Headaches, Sore Throat Pulmonary: Reports: No Symptoms. Denies: Shortness of Breath Cardiovascular: Reports: No Symptoms. Denies: Chest Pain Gastrointestinal: Reports: No Symptoms. Denies: Abdominal Pain, Nausea, Vomiting Genitourinary: Reports: No Symptoms. Denies: Dysuria, Frequency, Burning Musculoskeletal: Reports: No Symptoms Skin: Reports: No Symptoms Neurological: Reports: Dizziness. Denies: Trouble Speaking Psychiatric: Reports: No Symptoms - Patient Data Vitals - Most Recent: Last Vital Signs Temp 97 F 08/16/20 08:00 Pulse 74 08/16/20 08:00 Resp 16 08/16/20 08:00 BP 93/55 L 08/16/20 09:16 Pulse Ox 95 08/16/20 08:00 Weight - Most Recent: 83 kg I&O - Last 24 Hours: Intake & Output 08/15/20 08/16/20 08/16/20 22:59 06:59 14:59 Intake Total 200 200 Output Total 100 325 Balance 100 -125 Lab Results Last 24 Hours: Laboratory Results - last 24 hr 08/15/20 08/15/20 08/15/20 Range/Units 08:56 08:56 08:56 WBC (4.0-11.0) K/uL RBC (4.50-5.90) M/uL Hgb (13.0-17.0) g/dL Hct (38.0-50.0) % MCV (80.0-98.0) fL MCH (27.0-32.0) pg MCHC (31.0-37.0) g/dL RDW Std Deviation (28.0-62.0) fl RDW Coeff of [place] (11.0-15.0) % Plt Count (150-400) K/uL MPV (7.40-12.00) fL Neut % (Auto) (48.0-80.0) % Lymph % (Auto) (16.0-40.0) % [place] % (Auto) (0.0-15.0) % Eos % (Auto) (0.0-7.0) % Baso % (Auto) (0.0-1.5) % Neut # (Auto) (1.4-5.7) K/uL Lymph # (Auto) (0.6-2.4) K/uL [place] # (Auto) (0.0-0.8) K/uL Eos # (Auto) (0.0-0.7) K/uL Baso # (Auto) (0.0-0.1) K/uL Nucleated RBC % /100WBC Nucleated RBCs # K/uL Sodium (136-148) mmol/L Potassium (3.5-5.1) mmol/L Chloride (98-107) mmol/L Carbon Dioxide (21.0-32.0) mmol/L BUN (7.0-18.0) mg/dL Creatinine (0.8-1.3) mg/dL Est Cr Clr Drug Dosing mL/min Estimated GFR (MDRD) ml/min Glucose (74-106) mg/dL Hemoglobin A1c 6.1 (4.5 - 6.2) % Calcium (8.5-10.1) mg/dL Magnesium (1.8-2.4) mg/dL Troponin I < 0.050 (0.000-0.056) ng/mL Triglycerides (0-200) mg/dL Cholesterol (50-200) mg/dL LDL Cholesterol, Calc (60-180) mg/dL VLDL Cholesterol (5-55) mg/dL HDL Cholesterol (40-60) mg/dL Cholesterol/HDL Ratio (3.3-6.0) TSH 3rd Generation 2.07 (0.36-3.74) uIU/mL SARS-CoV-2 RNA (BIJU) (NEGATIVE) 08/15/20 08/16/20 08/16/20 Range/Units 09:57 06:41 06:41 WBC 6.47 (4.0-11.0) K/uL RBC 5.04 (4.50-5.90) M/uL Hgb 15.0 (13.0-17.0) g/dL Hct 46.1 (38.0-50.0) % MCV 91.5 (80.0-98.0) fL MCH 29.8 (27.0-32.0) pg MCHC 32.5 (31.0-37.0) g/dL RDW Std Deviation 44.1 (28.0-62.0) fl RDW Coeff of Judy 13 (11.0-15.0) % Plt Count 168 (150-400) K/uL MPV 10.30 (7.40-12.00) fL Neut % (Auto) 80.2 H (48.0-80.0) % Lymph % (Auto) 9.9 L (16.0-40.0) % [place] % (Auto) 8.5 (0.0-15.0) % Eos % (Auto) 1.1 (0.0-7.0) % Baso % (Auto) 0.3 (0.0-1.5) % Neut # (Auto) 5.2 (1.4-5.7) K/uL Lymph # (Auto) 0.6 (0.6-2.4) K/uL [place] # (Auto) 0.6 (0.0-0.8) K/uL Eos # (Auto) 0.1 (0.0-0.7) K/uL Baso # (Auto) 0.0 (0.0-0.1) K/uL Nucleated RBC % 0.0 /100WBC Nucleated RBCs # 0 K/uL Sodium 139 (136-148) mmol/L Potassium 3.5 (3.5-5.1) mmol/L Chloride 105 (98-107) mmol/L Carbon Dioxide 20.9 L (21.0-32.0) mmol/L BUN 47 H (7.0-18.0) mg/dL Creatinine 1.3 (0.8-1.3) mg/dL Est Cr Clr Drug Dosing 43.05 mL/min Estimated GFR (MDRD) 52.7 ml/min Glucose 110 H (74-106) mg/dL Hemoglobin A1c (4.5 - 6.2) % Calcium 8.0 L (8.5-10.1) mg/dL Magnesium 2.2 (1.8-2.4) mg/dL Troponin I (0.000-0.056) ng/mL Triglycerides 117 (0-200) mg/dL Cholesterol 135 (50-200) mg/dL LDL Cholesterol, Calc 73 (60-180) mg/dL VLDL Cholesterol 23 (5-55) mg/dL HDL Cholesterol 39 L (40-60) mg/dL Cholesterol/HDL Ratio 3.5 (3.3-6.0) TSH 3rd Generation (0.36-3.74) uIU/mL SARS-CoV-2 RNA (BIJU) NEGATIVE (NEGATIVE) Med Orders - Current: Current Medications Acetaminophen (Acetaminophen 325 Mg Tab) 650 mg PO Q4H PRN PRN Reason: Pain (Mild 1-3)/fever Aspirin (Aspirin 81 Mg Tab.Ec) 81 mg PO DAILY [facility] Last Admin: 08/16/20 09:18 Dose: 81 mg Documented by: Docusate Sodium (Docusate Sodium 100 Mg Cap) 100 mg PO BID PRN PRN Reason: Constipation Enoxaparin Sodium (Enoxaparin 40 Mg/0.4 Ml Syringe) 40 mg SUBCUT Q24H [facility] Last Admin: 08/15/20 14:03 Dose: 40 mg Documented by: Labetalol HCl (Labetalol 100 Mg/20 Ml Mdv) 10 mg IVPUSH Q4H PRN PRN Reason: SBP>220 Lisinopril (Lisinopril 10 Mg Tab) 20 mg PO DAILY [facility] Last Admin: 08/16/20 09:16 Dose: 20 mg Documented by: Ondansetron HCl (Ondansetron 4 Mg/2 Ml Sdv) 4 mg IVPUSH Q4H PRN PRN Reason: Nausea Simvastatin (Simvastatin 40 Mg Tab) 40 mg PO BEDTIME [facility] Last Admin: 08/15/20 20:32 Dose: 40 mg Documented by: Sodium Chloride (Sodium Chloride 0.9% 2.5 Ml Syringe) 2.5 ml FLUSH ASDIRECTED PRN PRN Reason: Keep Vein Open Discontinued Medications Aspirin (Aspirin 325 Mg Tab) 325 mg PO ONETIME ONE Stop: 08/15/20 14:24 Last Admin: 08/15/20 15:21 Dose: 325 mg Documented by: Gadobenate Dimeglumine (Gadobenate Dime[place]umine 529 Mg/Ml 20 Ml Sdv) 20 ml IVPUSH ONETIME STA Stop: 08/15/20 12:43 Last Admin: 08/15/20 12:42 Dose: 17 ml Documented by: Iopamidol (Iopamidol 755 Mg/Ml 500 Ml Multipack Bottle) 100 ml IVPUSH ONETIME STA Stop: 08/15/20 10:00 Last Admin: 08/15/20 10:00 Dose: 100 ml Documented by: - Exam General: Alert, Oriented, Cooperative, No Acute Distress Neck: Supple Lungs: Clear to Auscultation, Normal Respiratory Effort Cardiovascular: Regular Rate, Regular Rhythm GI/Abdominal Exam: Normal Bowel Sounds, Soft, Non-Tender Extremities: Normal Inspection, Normal Range of Motion, Non-Tender, No Pedal Edema Wound/Incisions: Healing Well Neurological: No New Focal Deficit, Normal Gait, Other (Has some dizziness after getting up from laying or sitting position.) Psy/Mental Status: Alert, Normal Affect, Normal Mood - Patient Data Lab Results Last 24 hrs: Laboratory Results - last 24 hr 08/15/20 08/15/20 08/15/20 Range/Units 08:56 08:56 08:56 WBC (4.0-11.0) K/uL RBC (4.50-5.90) M/uL Hgb (13.0-17.0) g/dL Hct (38.0-50.0) % MCV (80.0-98.0) fL MCH (27.0-32.0) pg MCHC (31.0-37.0) g/dL RDW Std Deviation (28.0-62.0) fl RDW Coeff of Judy (11.0-15.0) % Plt Count (150-400) K/uL MPV (7.40-12.00) fL Neut % (Auto) (48.0-80.0) % Lymph % (Auto) (16.0-40.0) % [place] % (Auto) (0.0-15.0) % Eos % (Auto) (0.0-7.0) % Baso % (Auto) (0.0-1.5) % Neut # (Auto) (1.4-5.7) K/uL Lymph # (Auto) (0.6-2.4) K/uL [place] # (Auto) (0.0-0.8) K/uL Eos # (Auto) (0.0-0.7) K/uL Baso # (Auto) (0.0-0.1) K/uL Nucleated RBC % /100WBC Nucleated RBCs # K/uL Sodium (136-148) mmol/L Potassium (3.5-5.1) mmol/L Chloride (98-107) mmol/L Carbon Dioxide (21.0-32.0) mmol/L BUN (7.0-18.0) mg/dL Creatinine (0.8-1.3) mg/dL Est Cr Clr Drug Dosing mL/min Estimated GFR (MDRD) ml/min Glucose (74-106) mg/dL Hemoglobin A1c 6.1 (4.5 - 6.2) % Calcium (8.5-10.1) mg/dL Magnesium (1.8-2.4) mg/dL Troponin I < 0.050 (0.000-0.056) ng/mL Triglycerides (0-200) mg/dL Cholesterol (50-200) mg/dL LDL Cholesterol, Calc (60-180) mg/dL VLDL Cholesterol (5-55) mg/dL HDL Cholesterol (40-60) mg/dL Cholesterol/HDL Ratio (3.3-6.0) TSH 3rd Generation 2.07 (0.36-3.74) uIU/mL SARS-CoV-2 RNA (BIJU) (NEGATIVE) 08/15/20 08/16/20 08/16/20 Range/Units 09:57 06:41 06:41 WBC 6.47 (4.0-11.0) K/uL RBC 5.04 (4.50-5.90) M/uL Hgb 15.0 (13.0-17.0) g/dL Hct 46.1 (38.0-50.0) % MCV 91.5 (80.0-98.0) fL MCH 29.8 (27.0-32.0) pg MCHC 32.5 (31.0-37.0) g/dL RDW Std Deviation 44.1 (28.0-62.0) fl RDW Coeff of Judy 13 (11.0-15.0) % Plt Count 168 (150-400) K/uL MPV 10.30 (7.40-12.00) fL Neut % (Auto) 80.2 H (48.0-80.0) % Lymph % (Auto) 9.9 L (16.0-40.0) % [place] % (Auto) 8.5 (0.0-15.0) % Eos % (Auto) 1.1 (0.0-7.0) % Baso % (Auto) 0.3 (0.0-1.5) % Neut # (Auto) 5.2 (1.4-5.7) K/uL Lymph # (Auto) 0.6 (0.6-2.4) K/uL [place] # (Auto) 0.6 (0.0-0.8) K/uL Eos # (Auto) 0.1 (0.0-0.7) K/uL Baso # (Auto) 0.0 (0.0-0.1) K/uL Nucleated RBC % 0.0 /100WBC Nucleated RBCs # 0 K/uL Sodium 139 (136-148) mmol/L Potassium 3.5 (3.5-5.1) mmol/L Chloride 105 (98-107) mmol/L Carbon Dioxide 20.9 L (21.0-32.0) mmol/L BUN 47 H (7.0-18.0) mg/dL Creatinine 1.3 (0.8-1.3) mg/dL Est Cr Clr Drug Dosing 43.05 mL/min Estimated GFR (MDRD) 52.7 ml/min Glucose 110 H (74-106) mg/dL Hemoglobin A1c (4.5 - 6.2) % Calcium 8.0 L (8.5-10.1) mg/dL Magnesium 2.2 (1.8-2.4) mg/dL Troponin I (0.000-0.056) ng/mL Triglycerides 117 (0-200) mg/dL Cholesterol 135 (50-200) mg/dL LDL Cholesterol, Calc 73 (60-180) mg/dL VLDL Cholesterol 23 (5-55) mg/dL HDL Cholesterol 39 L (40-60) mg/dL Cholesterol/HDL Ratio 3.5 (3.3-6.0) TSH 3rd Generation (0.36-3.74) uIU/mL SARS-CoV-2 RNA (BIJU) NEGATIVE (NEGATIVE) Result Diagrams: 08/16/20 06:41 08/16/20 06:41 Sepsis Event Note - Evaluation Sepsis Screening Result: No Definite Risk - Focused Exam Vital Signs: Vital Signs Temp Pulse Resp BP BP Pulse Ox 08/16/20 09:16 93/55 L 08/16/20 08:00 97 F 74 16 124/63 95 08/16/20 04:30 96.7 F L 74 20 138/79 96 08/15/20 23:27 96.9 F 73 20 163/88 H 97 - Problem List & Annotations (1) TIA (transient ischemic attack) SNOMED Code(s): 883163064 Code(s): G45.9 - TRANSIENT CEREBRAL ISCHEMIC ATTACK, UNSPECIFIED Status: Acute Current Visit: Yes (2) CVA (cerebral vascular accident) SNOMED Code(s): 801866421 Code(s): I63.9 - CEREBRAL INFARCTION, UNSPECIFIED Status: Suspected Current Visit: Yes (3) HTN (hypertension) SNOMED Code(s): 87701419 Code(s): I10 - ESSENTIAL (PRIMARY) HYPERTENSION Status: Chronic Current Visit: Yes (4) History of coronary artery bypass graft SNOMED Code(s): 921531343, 360904106 Code(s): Z95.1 - PRESENCE OF AORTOCORONARY BYPASS GRAFT Status: Chronic Current Visit: Yes (5) HLD (hyperlipidemia) SNOMED Code(s): 13710390 Code(s): E78.5 - HYPERLIPIDEMIA, UNSPECIFIED Status: Chronic Current Visit: Yes (6) CAD (coronary artery disease) SNOMED Code(s): 75930757 Code(s): I25.10 - ATHSCL HEART DISEASE OF [place] CORONARY ARTERY W/O ANG PCTRS Status: Chronic Current Visit: Yes (7) Dementia SNOMED Code(s): 14900482 Code(s): F03.90 - UNSPECIFIED DEMENTIA WITHOUT BEHAVIORAL DISTURBANCE Status: Chronic Current Visit: Yes (8) History of radical prostatectomy SNOMED Code(s): 150694354075143, 836490245598074 Code(s): Z90.79 - ACQUIRED ABSENCE OF OTHER GENITAL ORGAN(S) Status: Chronic Current Visit: Yes - Problem List Review Problem List Initiated/Reviewed/Updated: Yes - My Orders Last 24 Hours: My Active Orders 08/15/20 Lunch Heart Healthy Diet [DIET] 08/15/20 12:10 Height and Weight [RC] DAILY Intake and Output [RC] Q12H Oxygen Therapy [RC] PRN Up With Assistance [RC] ASDIRECTED VTE/DVT Education [RC] PER UNIT ROUTINE Vital Signs [RC] Q4H Acetaminophen [TylenoL] 650 mg PO Q4H PRN Docusate Sodium [Colace] 100 mg PO BID PRN Ondansetron [Zofran] 4 mg IVPUSH Q4H PRN Sodium Chloride 0.9% [Saline Flush] 2.5 ml FLUSH ASDIRECTED PRN Saline Lock Insert [OM.PC] Routine 08/15/20 12:16 Telemetry Monitoring [Cardiac Monitoring] [RC] Q8H 08/15/20 12:17 Nursing Bedside Swallow Screen [RC] ASDIRECTED Echo Comp wo Cont [US] Routine 08/15/20 12:30 Enoxaparin [Lovenox] 40 mg SUBCUT Q24H 08/15/20 14:23 Labetalol [Normodyne] 10 mg IVPUSH Q4H PRN 08/15/20 14:25 Neuro Check [RC] Q4H 08/15/20 14:51 Resuscitation Status Routine 08/15/20 16:01 PT Evaluation and Treatment [CONS] Routine 08/15/20 21:00 Simvastatin [Zocor] 40 mg PO BEDTIME 08/16/20 09:00 Aspirin [Halfprin] 81 mg PO DAILY lisinopriL [Prinivil] 20 mg PO DAILY 08/16/20 10:07 Orthostatic Vital Signs [RC] ONETIME - Plan Plan:: This 84-year-old male admitted with TIA, possible CVA. 1. TIA, possible CVA -MRI negative for acute stroke. -Echo returned which shows left ventricular ejection fraction 55 to 60% normal right ventricular ocular systolic function mild aortic valve sclerosis without stenosis trace mitral valve regurgitation, trace tricuspid valve regurgitation, right ventricular systolic pressure was unable to be determined no intracardiac source of embolus identified, no regional wall abnormalities -A1c 6.1, TSH 2.07, triglycerides 117 total cholesterol 135 LDL 73 HDL 39. -Monitor on telemetry to evaluate for arrhythmia -ASA 325 now and then 81 daily daily -Neurochecks every 4 hours - PT eval - Orthostatic VS - Will give gentle IVFs x 1 L today 2. Bilateral hip pain - reports recent fall due to unsteady gait -Hip x-ray negative for acute fractures. 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 -Consult PT 3. History HTN, CAD -Continue statin -Add aspirin VTE prophylaxis: Lovenox CODE STATUS DNR/DNI Dispo 1 to 2 days.
[2020-08-16] MEDS: Enoxaparin 40 MG/0.4 ML Syringe SUBCUT SCH (11:49)
[2020-08-16] MEDS: Simvastatin 40 MG Tab PO SCH (20:45)
[2020-08-17 06:30] LABS: CARBON DIOXIDE,CO2 22.1 mmol/L (21.0-32.0); POTASSIUM,K 3.6 mmol/L (3.5-5.1)
[2020-08-17] MEDS: Aspirin 81 MG Tab.EC PO SCH (09:22)
[2020-08-17] MEDS ORDERED: Sodium Chloride 0.9% 500 ML IV ONE (10:33)
[2020-08-17] MEDS: Enoxaparin 40 MG/0.4 ML Syringe SUBCUT SCH (11:49)
--- NOTE | 2020-08-17 12:31 | PCM.PN ---
- General Info Date of Service: 08/17/20 Admission Dx/Problem (Free Text): Admission Diagnosis/Problem Admission Diagnosis/Problem TIA, Transient ischemic attack Subjective Update: Patient doing okay this morning. Denies any chest pain shortness of breath or palpitations. He reports intermittent dizziness. Functional Status: Reports: Pain Controlled, Tolerating Diet, Ambulating, Urinating - Review of Systems General: Reports: No Symptoms. Denies: Fever, Weakness, Fatigue HEENT: Reports: No Symptoms. Denies: Headaches, Sore Throat, Visual Changes Pulmonary: Reports: No Symptoms. Denies: Shortness of Breath Cardiovascular: Reports: Lightheadedness (Especially with standing up). Denies: Chest Pain Gastrointestinal: Reports: No Symptoms. Denies: Abdominal Pain, Constipation, Nausea, Vomiting Genitourinary: Reports: No Symptoms Musculoskeletal: Reports: No Symptoms Skin: Reports: No Symptoms Neurological: Reports: Dizziness Psychiatric: Reports: No Symptoms - Patient Data Vitals - Most Recent: Last Vital Signs Temp 97.3 F 08/17/20 12:20 Pulse 64 08/17/20 12:20 Resp 20 08/17/20 12:20 BP 186/86 H 08/17/20 12:20 Pulse Ox 99 08/17/20 12:20 Orthostatic Blood Pressure [ 70/50 Standing] Orthostatic Blood Pressure [ 120/75 Sitting] Orthostatic Blood Pressure [ 130/80 Supine] Weight - Most Recent: 82.554 kg I&O - Last 24 Hours: Intake & Output 08/16/20 08/17/20 08/17/20 22:59 06:59 14:59 Intake Total 480 450 300 Output Total 400 600 Balance 80 -150 300 Lab Results Last 24 Hours: Laboratory Results - last 24 hr 08/17/20 08/17/20 Range/Units 05:54 05:54 WBC 4.95 (4.0-11.0) K/uL RBC 5.05 (4.50-5.90) M/uL Hgb 15.2 (13.0-17.0) g/dL Hct 45.7 (38.0-50.0) % MCV 90.5 (80.0-98.0) fL MCH 30.1 (27.0-32.0) pg MCHC 33.3 (31.0-37.0) g/dL RDW Std Deviation 44.0 (28.0-62.0) fl RDW Coeff of Judy 13 (11.0-15.0) % Plt Count 165 (150-400) K/uL MPV 10.20 (7.40-12.00) fL Neut % (Auto) 68.1 (48.0-80.0) % Lymph % (Auto) 17.0 (16.0-40.0) % [place] % (Auto) 11.5 (0.0-15.0) % Eos % (Auto) 3.0 (0.0-7.0) % Baso % (Auto) 0.4 (0.0-1.5) % Neut # (Auto) 3.4 (1.4-5.7) K/uL Lymph # (Auto) 0.8 (0.6-2.4) K/uL [place] # (Auto) 0.6 (0.0-0.8) K/uL Eos # (Auto) 0.2 (0.0-0.7) K/uL Baso # (Auto) 0.0 (0.0-0.1) K/uL Nucleated RBC % 0.0 /100WBC Nucleated RBCs # 0 K/uL Sodium 139 (136-148) mmol/L Potassium 3.6 (3.5-5.1) mmol/L Chloride 107 (98-107) mmol/L Carbon Dioxide 22.1 (21.0-32.0) mmol/L BUN 39 H (7.0-18.0) mg/dL Creatinine 1.3 (0.8-1.3) mg/dL Est Cr Clr Drug Dosing 43.05 mL/min Estimated GFR (MDRD) 52.7 ml/min Glucose 106 (74-106) mg/dL Calcium 7.8 L (8.5-10.1) mg/dL Magnesium 2.2 (1.8-2.4) mg/dL Med Orders - Current: Current Medications Acetaminophen (Acetaminophen 325 Mg Tab) 650 mg PO Q4H PRN PRN Reason: Pain (Mild 1-3)/fever Aspirin (Aspirin 81 Mg Tab.Ec) 81 mg PO DAILY [facility] Last Admin: 08/17/20 09:22 Dose: 81 mg Documented by: Docusate Sodium (Docusate Sodium 100 Mg Cap) 100 mg PO BID PRN PRN Reason: Constipation Enoxaparin Sodium (Enoxaparin 40 Mg/0.4 Ml Syringe) 40 mg SUBCUT Q24H [facility] Last Admin: 08/17/20 11:49 Dose: 40 mg Documented by: Sodium Chloride (Normal Saline) 500 mls @ 150 mls/hr IV ONETIME ONE Stop: 08/17/20 13:52 Last Admin: 08/17/20 10:52 Dose: 150 mls/hr Documented by: Labetalol HCl (Labetalol 100 Mg/20 Ml Mdv) 10 mg IVPUSH Q4H PRN PRN Reason: SBP>220 Ondansetron HCl (Ondansetron 4 Mg/2 Ml Sdv) 4 mg IVPUSH Q4H PRN PRN Reason: Nausea Simvastatin (Simvastatin 40 Mg Tab) 40 mg PO BEDTIME [facility] Last Admin: 08/16/20 20:45 Dose: 40 mg Documented by: Sodium Chloride (Sodium Chloride 0.9% 2.5 Ml Syringe) 2.5 ml FLUSH ASDIRECTED PRN PRN Reason: Keep Vein Open Discontinued Medications Aspirin (Aspirin 325 Mg Tab) 325 mg PO ONETIME ONE Stop: 08/15/20 14:24 Last Admin: 08/15/20 15:21 Dose: 325 mg Documented by: Gadobenate Dimeglumine (Gadobenate [place] 529 Mg/Ml 20 Ml Sdv) 20 ml IVPUSH ONETIME STA Stop: 08/15/20 12:43 Last Admin: 08/15/20 12:42 Dose: 17 ml Documented by: Sodium Chloride (Normal Saline) 1,000 mls @ 100 mls/hr IV ONETIME ONE Stop: 08/16/20 20:42 Last Admin: 08/16/20 11:11 Dose: 100 mls/hr Documented by: Iopamidol (Iopamidol 755 Mg/Ml 500 Ml Multipack Bottle) 100 ml IVPUSH ONETIME STA Stop: 08/15/20 10:00 Last Admin: 08/15/20 10:00 Dose: 100 ml Documented by: Lisinopril (Lisinopril 10 Mg Tab) 20 mg PO DAILY [facility] Last Admin: 08/16/20 09:16 Dose: 20 mg Documented by: - Exam General: Alert, Oriented, Cooperative, No Acute Distress Neck: Supple Lungs: Clear to Auscultation, Normal Respiratory Effort Cardiovascular: Regular Rate, Regular Rhythm GI/Abdominal Exam: Normal Bowel Sounds, Non-Tender Extremities: Normal Inspection, Normal Range of Motion, Non-Tender, No Pedal Edema Wound/Incisions: Healing Well Neurological: No New Focal Deficit Psy/Mental Status: Alert, Normal Affect, Normal Mood - Patient Data Lab Results Last 24 hrs: Laboratory Results - last 24 hr 08/17/20 08/17/20 Range/Units 05:54 05:54 WBC 4.95 (4.0-11.0) K/uL RBC 5.05 (4.50-5.90) M/uL Hgb 15.2 (13.0-17.0) g/dL Hct 45.7 (38.0-50.0) % MCV 90.5 (80.0-98.0) fL MCH 30.1 (27.0-32.0) pg MCHC 33.3 (31.0-37.0) g/dL RDW Std Deviation 44.0 (28.0-62.0) fl RDW Coeff of [place] 13 (11.0-15.0) % Plt Count 165 (150-400) K/uL MPV 10.20 (7.40-12.00) fL Neut % (Auto) 68.1 (48.0-80.0) % Lymph % (Auto) 17.0 (16.0-40.0) % [place] % (Auto) 11.5 (0.0-15.0) % Eos % (Auto) 3.0 (0.0-7.0) % Baso % (Auto) 0.4 (0.0-1.5) % Neut # (Auto) 3.4 (1.4-5.7) K/uL Lymph # (Auto) 0.8 (0.6-2.4) K/uL [place] # (Auto) 0.6 (0.0-0.8) K/uL Eos # (Auto) 0.2 (0.0-0.7) K/uL Baso # (Auto) 0.0 (0.0-0.1) K/uL Nucleated RBC % 0.0 /100WBC Nucleated RBCs # 0 K/uL Sodium 139 (136-148) mmol/L Potassium 3.6 (3.5-5.1) mmol/L Chloride 107 (98-107) mmol/L Carbon Dioxide 22.1 (21.0-32.0) mmol/L BUN 39 H (7.0-18.0) mg/dL Creatinine 1.3 (0.8-1.3) mg/dL Est Cr Clr Drug Dosing 43.05 mL/min Estimated GFR (MDRD) 52.7 ml/min Glucose 106 (74-106) mg/dL Calcium 7.8 L (8.5-10.1) mg/dL Magnesium 2.2 (1.8-2.4) mg/dL Result Diagrams: 08/17/20 05:54 08/17/20 05:54 Sepsis Event Note - Evaluation Sepsis Screening Result: No Definite Risk - Focused Exam Vital Signs: Vital Signs Temp Pulse Resp BP Pulse Ox 08/17/20 12:20 97.3 F 64 20 186/86 H 99 08/17/20 07:43 97.2 F 68 20 118/90 98 08/17/20 04:00 97.1 F 67 17 133/79 97 08/17/20 00:45 97 F 72 18 110/62 95 - Problem List & Annotations (1) TIA (transient ischemic attack) SNOMED Code(s): 788337992 Code(s): G45.9 - TRANSIENT CEREBRAL ISCHEMIC ATTACK, UNSPECIFIED Status: Acute Current Visit: Yes (2) CVA (cerebral vascular accident) SNOMED Code(s): 825639779 Code(s): I63.9 - CEREBRAL INFARCTION, UNSPECIFIED Status: Suspected Current Visit: Yes (3) HTN (hypertension) SNOMED Code(s): 29750662 Code(s): I10 - ESSENTIAL (PRIMARY) HYPERTENSION Status: Chronic Current Visit: Yes (4) History of coronary artery bypass graft SNOMED Code(s): 238790009, 757799659 Code(s): Z95.1 - PRESENCE OF AORTOCORONARY BYPASS GRAFT Status: Chronic Current Visit: Yes (5) HLD (hyperlipidemia) SNOMED Code(s): 03518512 Code(s): E78.5 - HYPERLIPIDEMIA, UNSPECIFIED Status: Chronic Current Visit: Yes (6) CAD (coronary artery disease) SNOMED Code(s): 02751089 Code(s): I25.10 - ATHSCL HEART DISEASE OF [place] CORONARY ARTERY W/O ANG PCTRS Status: Chronic Current Visit: Yes (7) Dementia SNOMED Code(s): 33238006 Code(s): F03.90 - UNSPECIFIED DEMENTIA WITHOUT BEHAVIORAL DISTURBANCE Status: Chronic Current Visit: Yes (8) History of radical prostatectomy SNOMED Code(s): 727035749022694, 313108845786019 Code(s): Z90.79 - ACQUIRED ABSENCE OF OTHER GENITAL ORGAN(S) Status: Chronic Current Visit: Yes (9) Orthostatic hypotension SNOMED Code(s): 85905824 Code(s): I95.1 - ORTHOSTATIC HYPOTENSION Status: Acute Current Visit: Yes - Problem List Review Problem List Initiated/Reviewed/Updated: Yes - My Orders Last 24 Hours: My Active Orders 08/17/20 08:01 Orthostatic Vital Signs [RC] ASDIRECTED 08/17/20 10:33 Sodium Chloride 0.9% [Normal Saline] 500 ml IV ONETIME 08/17/20 10:49 Antiembolic Devices [RC] PER UNIT ROUTINE ADELE Hose [Antiembolic Hose] [OM.PC] Routine - Plan Plan:: This 84-year-old male admitted with TIA, possible CVA. 1. TIA -MRI negative for acute stroke. -Echo returned which shows left ventricular ejection fraction 55 to 60% normal right ventricular ocular systolic function mild aortic valve sclerosis without stenosis trace mitral valve regurgitation, trace tricuspid valve regurgitation, right ventricular systolic pressure was unable to be determined no intracardiac source of embolus identified, no regional wall abnormalities -A1c 6.1, TSH 2.07, triglycerides 117 total cholesterol 135 LDL 73 HDL 39. -Monitor on telemetry to evaluate for arrhythmia -ASA 81 daily -Neurochecks every 4 hours - PT reports patient actually ambulates quite well but does feel that orthostatic hypotension is limiting his distance walking. - ZIO patch on discharge 2. Bilateral hip pain - reports recent fall due to unsteady gait -Hip x-ray negative for acute fractures. 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 -Consult PT 3. History HTN, CAD -Continue statin -Add aspirin 4. orthostatic hypotension -We will stop lisinopril -Give 500 mill bolus this morning. -Recheck blood pressure this afternoon with orthostatic vital signs -Continue physical therapy VTE prophylaxis: Lovenox CODE STATUS DNR/DNI Dispo 1 to 2 days. Home Health on Discharge.
[2020-08-17] MEDS: Simvastatin 40 MG Tab PO SCH (20:31)
[2020-08-18] MEDS: Aspirin 81 MG Tab.EC PO SCH (08:46)
[2020-08-18] MEDS: Enoxaparin 40 MG/0.4 ML Syringe SUBCUT SCH (12:04)
--- NOTE | 2020-08-18 12:46 | PCM.PN ---
- General Info Date of Service: 08/18/20 Admission Dx/Problem (Free Text): Admission Diagnosis/Problem Admission Diagnosis/Problem TIA, Transient ischemic attack Subjective Update: Patient doing okay this morning. Denies any chest pain shortness of breath or palpitations. He reports intermittent dizziness. Functional Status: Reports: Pain Controlled, Tolerating Diet, Urinating - Review of Systems General: Reports: Weakness. Denies: Fatigue, Malaise, Chills Pulmonary: Denies: Shortness of Breath, Pleuritic Chest Pain Cardiovascular: Denies: Chest Pain, Palpitations, Dyspnea on Exertion Gastrointestinal: Denies: Abdominal Pain, Constipation, Decreased Appetite Genitourinary: Denies: Dysuria, Frequency, Burning Musculoskeletal: Denies: Neck Pain, Shoulder Pain, Arm Pain - Patient Data Vitals - Most Recent: Last Vital Signs Temp 36.6 C 08/18/20 12:01 Pulse 69 08/18/20 12:01 Resp 17 08/18/20 12:01 BP 181/90 H 08/18/20 12:01 Pulse Ox 98 08/18/20 12:01 Orthostatic Blood Pressure [ 70/50 Standing] Orthostatic Blood Pressure [ 120/75 Sitting] Orthostatic Blood Pressure [ 130/80 Supine] Weight - Most Recent: 82.1 kg I&O - Last 24 Hours: Intake & Output 08/17/20 08/18/20 08/18/20 22:59 06:59 14:59 Intake Total 980 750 Output Total 750 1100 Balance 230 -350 Med Orders - Current: Current Medications Acetaminophen (Acetaminophen 325 Mg Tab) 650 mg PO Q4H PRN PRN Reason: Pain (Mild 1-3)/fever Aspirin (Aspirin 81 Mg Tab.Ec) 81 mg PO DAILY [facility] Last Admin: 08/18/20 08:46 Dose: 81 mg Documented by: Docusate Sodium (Docusate Sodium 100 Mg Cap) 100 mg PO BID PRN PRN Reason: Constipation Enoxaparin Sodium (Enoxaparin 40 Mg/0.4 Ml Syringe) 40 mg SUBCUT Q24H [facility] Last Admin: 08/18/20 12:04 Dose: 40 mg Documented by: Labetalol HCl (Labetalol 100 Mg/20 Ml Mdv) 10 mg IVPUSH Q4H PRN PRN Reason: SBP>220 Ondansetron HCl (Ondansetron 4 Mg/2 Ml Sdv) 4 mg IVPUSH Q4H PRN PRN Reason: Nausea Simvastatin (Simvastatin 40 Mg Tab) 40 mg PO BEDTIME [facility] Last Admin: 08/17/20 20:31 Dose: 40 mg Documented by: Sodium Chloride (Sodium Chloride 0.9% 2.5 Ml Syringe) 2.5 ml FLUSH ASDIRECTED PRN PRN Reason: Keep Vein Open Discontinued Medications Aspirin (Aspirin 325 Mg Tab) 325 mg PO ONETIME ONE Stop: 08/15/20 14:24 Last Admin: 08/15/20 15:21 Dose: 325 mg Documented by: Gadobenate Dimeglumine (Gadobenate Dimeglumine 529 Mg/Ml 20 Ml Sdv) 20 ml IVPUSH ONETIME STA Stop: 08/15/20 12:43 Last Admin: 08/15/20 12:42 Dose: 17 ml Documented by: Sodium Chloride (Normal Saline) 1,000 mls @ 100 mls/hr IV ONETIME ONE Stop: 08/16/20 20:42 Last Admin: 08/16/20 11:11 Dose: 100 mls/hr Documented by: Sodium Chloride (Normal Saline) 500 mls @ 150 mls/hr IV ONETIME ONE Stop: 08/17/20 13:52 Last Admin: 08/17/20 10:52 Dose: 150 mls/hr Documented by: Iopamidol (Iopamidol 755 Mg/Ml 500 Ml Multipack Bottle) 100 ml IVPUSH ONETIME STA Stop: 08/15/20 10:00 Last Admin: 08/15/20 10:00 Dose: 100 ml Documented by: Lisinopril (Lisinopril 10 Mg Tab) 20 mg PO DAILY [facility] Last Admin: 08/16/20 09:16 Dose: 20 mg Documented by: - Exam General: Alert, Oriented Neck: Supple Lungs: Clear to Auscultation, Normal Respiratory Effort Cardiovascular: Regular Rate, Regular Rhythm GI/Abdominal Exam: Normal Bowel Sounds, Soft, Non-Tender Back Exam: Normal Inspection Extremities: Normal Inspection, Normal Range of Motion - Patient Data Result Diagrams: 08/17/20 05:54 08/17/20 05:54 Sepsis Event Note - Evaluation Sepsis Screening Result: No Definite Risk - Focused Exam Vital Signs: Vital Signs Temp Pulse Resp BP Pulse Ox 08/18/20 12:01 36.6 C 69 17 181/90 H 98 08/18/20 08:00 36.3 C 71 17 149/81 H 99 08/18/20 04:00 36.2 C 65 16 163/85 H 96 - Problem List & Annotations (1) Orthostatic hypotension SNOMED Code(s): 55145688 Code(s): I95.1 - ORTHOSTATIC HYPOTENSION Status: Acute Current Visit: Yes (2) TIA (transient ischemic attack) SNOMED Code(s): 546330951 Code(s): G45.9 - TRANSIENT CEREBRAL ISCHEMIC ATTACK, UNSPECIFIED Status: Acute Current Visit: Yes (3) CAD (coronary artery disease) SNOMED Code(s): 15013139 Code(s): I25.10 - ATHSCL HEART DISEASE OF [place] CORONARY ARTERY W/O ANG PCTRS Status: Chronic Current Visit: Yes (4) Dementia SNOMED Code(s): 62620228 Code(s): F03.90 - UNSPECIFIED DEMENTIA WITHOUT BEHAVIORAL DISTURBANCE Status: Chronic Current Visit: Yes (5) HLD (hyperlipidemia) SNOMED Code(s): 18396477 Code(s): E78.5 - HYPERLIPIDEMIA, UNSPECIFIED Status: Chronic Current Visit: Yes (6) HTN (hypertension) SNOMED Code(s): 17434280 Code(s): I10 - ESSENTIAL (PRIMARY) HYPERTENSION Status: Chronic Current Visit: Yes (7) History of coronary artery bypass graft SNOMED Code(s): 060547045, 961329314 Code(s): Z95.1 - PRESENCE OF AORTOCORONARY BYPASS GRAFT Status: Chronic Current Visit: Yes (8) History of radical prostatectomy SNOMED Code(s): 919928953250978, 791453290418243 Code(s): Z90.79 - ACQUIRED ABSENCE OF OTHER GENITAL ORGAN(S) Status: Chronic Current Visit: Yes - Problem List Review Problem List Initiated/Reviewed/Updated: Yes - Plan Plan:: This 84-year-old male admitted with TIA, possible CVA. 1. TIA -MRI negative for acute stroke. -Echo returned which shows left ventricular ejection fraction 55 to 60% normal right ventricular ocular systolic function mild aortic valve sclerosis without stenosis trace mitral valve regurgitation, trace tricuspid valve regurgitation, right ventricular systolic pressure was unable to be determined no intracardiac source of embolus identified, no regional wall abnormalities -A1c 6.1, TSH 2.07, triglycerides 117 total cholesterol 135 LDL 73 HDL 39. -Monitor on telemetry to evaluate for arrhythmia -ASA 81 daily -Neurochecks every 4 hours - PT reports patient actually ambulates quite well but does feel that orthostatic hypotension is limiting his distance walking, also his cognitive decline secondary to dementia patient is a fall risk and needs 1 assist and there are concern for safely discharging patient home as he lives alone with his elderly . Spoke to family in detail, they will think about rehab vs home with home health. Will get social service on board to discuss options and resources available - ZIO patch on discharge 2. Bilateral hip pain - reports recent fall due to unsteady gait -Hip x-ray negative for acute fractures. 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 -Consult PT 3. History HTN, CAD -Continue statin -Add aspirin 4. orthostatic hypotension -Rechecked blood pressure this afternoon with orthostatic vital signs, have improved from yesterday -Continue physical therapy -BP slightly on higher side but under acceptable range VTE prophylaxis: Lovenox CODE STATUS DNR/DNI Dispo 1 to 2 days. Home Health on Discharge.
[2020-08-18] MEDS: Lisinopril 5 MG Tab PO SCH (13:30)
[2020-08-18] MEDS: Simvastatin 40 MG Tab PO SCH (20:03)
[2020-08-19 07:20] LABS: CARBON DIOXIDE,CO2 25.5 mmol/L (21.0-32.0); POTASSIUM,K 3.8 mmol/L (3.5-5.1)
[2020-08-19] MEDS: Aspirin 81 MG Tab.EC PO SCH (08:52)
[2020-08-19] MEDS: Lisinopril 5 MG Tab PO SCH (08:52)
[2020-08-19] MEDS: Enoxaparin 40 MG/0.4 ML Syringe SUBCUT SCH (11:45)
--- NOTE | 2020-08-19 14:17 | PCM.PN ---
- General Info Date of Service: 08/19/20 - Review of Systems Systems Review Comment:: feeling better, - Patient Data Vitals - Most Recent: Last Vital Signs Temp 36.5 C 08/19/20 11:44 Pulse 75 08/19/20 11:44 Resp 16 08/19/20 11:44 BP 139/89 08/19/20 11:44 Pulse Ox 97 08/19/20 11:44 Orthostatic Blood Pressure [ 70/50 Standing] Orthostatic Blood Pressure [ 120/75 Sitting] Orthostatic Blood Pressure [ 130/80 Supine] Weight - Most Recent: 81.5 kg I&O - Last 24 Hours: Intake & Output 08/18/20 08/19/20 08/19/20 22:59 06:59 14:59 Intake Total 480 620 Output Total 500 120 Balance -20 500 Lab Results Last 24 Hours: Laboratory Results - last 24 hr 08/19/20 08/19/20 Range/Units 06:25 06:25 WBC 4.58 (4.0-11.0) K/uL RBC 5.18 (4.50-5.90) M/uL Hgb 15.6 (13.0-17.0) g/dL Hct 46.4 (38.0-50.0) % MCV 89.6 (80.0-98.0) fL MCH 30.1 (27.0-32.0) pg MCHC 33.6 (31.0-37.0) g/dL RDW Std Deviation 42.9 (28.0-62.0) fl RDW Coeff of Judy 13 (11.0-15.0) % Plt Count 180 (150-400) K/uL MPV 10.40 (7.40-12.00) fL Neut % (Auto) 64.4 (48.0-80.0) % Lymph % (Auto) 19.7 (16.0-40.0) % Clarke % (Auto) 12.4 (0.0-15.0) % Eos % (Auto) 3.1 (0.0-7.0) % Baso % (Auto) 0.4 (0.0-1.5) % Neut # (Auto) 3.0 (1.4-5.7) K/uL Lymph # (Auto) 0.9 (0.6-2.4) K/uL Clarke # (Auto) 0.6 (0.0-0.8) K/uL Eos # (Auto) 0.1 (0.0-0.7) K/uL Baso # (Auto) 0.0 (0.0-0.1) K/uL Nucleated RBC % 0.0 /100WBC Nucleated RBCs # 0 K/uL Sodium 142 (136-148) mmol/L Potassium 3.8 (3.5-5.1) mmol/L Chloride 109 H (98-107) mmol/L Carbon Dioxide 25.5 (21.0-32.0) mmol/L BUN 26 H (7.0-18.0) mg/dL Creatinine 1.2 (0.8-1.3) mg/dL Est Cr Clr Drug Dosing 46.64 mL/min Estimated GFR (MDRD) 57.8 ml/min Glucose 103 (74-106) mg/dL Calcium 8.5 (8.5-10.1) mg/dL Phosphorus 2.5 L (2.6-4.7) mg/dL Magnesium 2.1 (1.8-2.4) mg/dL Med Orders - Current: Current Medications Acetaminophen (Acetaminophen 325 Mg Tab) 650 mg PO Q4H PRN PRN Reason: Pain (Mild 1-3)/fever Aspirin (Aspirin 81 Mg Tab.Ec) 81 mg PO DAILY [facility] Last Admin: 08/19/20 08:52 Dose: 81 mg Documented by: Docusate Sodium (Docusate Sodium 100 Mg Cap) 100 mg PO BID PRN PRN Reason: Constipation Enoxaparin Sodium (Enoxaparin 40 Mg/0.4 Ml Syringe) 40 mg SUBCUT Q24H [facility] Last Admin: 08/19/20 11:45 Dose: 40 mg Documented by: Labetalol HCl (Labetalol 100 Mg/20 Ml Mdv) 10 mg IVPUSH Q4H PRN PRN Reason: SBP>220 Lisinopril (Lisinopril 5 Mg Tab) 5 mg PO DAILY [facility] Last Admin: 08/19/20 08:52 Dose: 5 mg Documented by: Ondansetron HCl (Ondansetron 4 Mg/2 Ml Sdv) 4 mg IVPUSH Q4H PRN PRN Reason: Nausea Simvastatin (Simvastatin 40 Mg Tab) 40 mg PO BEDTIME [facility] Last Admin: 08/18/20 20:03 Dose: 40 mg Documented by: Sodium Chloride (Sodium Chloride 0.9% 2.5 Ml Syringe) 2.5 ml FLUSH ASDIRECTED P RN PRN Reason: Keep Vein Open Discontinued Medications Aspirin (Aspirin 325 Mg Tab) 325 mg PO ONETIME ONE Stop: 08/15/20 14:24 Last Admin: 08/15/20 15:21 Dose: 325 mg Documented by: Gadobenate Dimeglumine (Gadobenate Dimeglumine 529 Mg/Ml 20 Ml Sdv) 20 ml IVPUSH ONETIME STA Stop: 08/15/20 12:43 Last Admin: 08/15/20 12:42 Dose: 17 ml Documented by: Sodium Chloride (Normal Saline) 1,000 mls @ 100 mls/hr IV ONETIME ONE Stop: 08/16/20 20:42 Last Admin: 08/16/20 11:11 Dose: 100 mls/hr Documented by: Sodium Chloride (Normal Saline) 500 mls @ 150 mls/hr IV ONETIME ONE Stop: 08/17/20 13:52 Last Admin: 08/17/20 10:52 Dose: 150 mls/hr Documented by: Iopamidol (Iopamidol 755 Mg/Ml 500 Ml Multipack Bottle) 100 ml IVPUSH ONETIME STA Stop: 08/15/20 10:00 Last Admin: 08/15/20 10:00 Dose: 100 ml Documented by: Lisinopril (Lisinopril 10 Mg Tab) 20 mg PO DAILY [facility] Last Admin: 08/16/20 09:16 Dose: 20 mg Documented by: - Exam General: Cooperative, No Acute Distress Lungs: Clear to Auscultation, Normal Respiratory Effort Cardiovascular: Regular Rate, Regular Rhythm Extremities: Non-Tender, No Pedal Edema Skin: Warm, Dry, Intact Neurological: No New Focal Deficit - Patient Data Lab Results Last 24 hrs: Laboratory Results - last 24 hr 08/19/20 08/19/20 Range/Units 06:25 06:25 WBC 4.58 (4.0-11.0) K/uL RBC 5.18 (4.50-5.90) M/uL Hgb 15.6 (13.0-17.0) g/dL Hct 46.4 (38.0-50.0) % MCV 89.6 (80.0-98.0) fL MCH 30.1 (27.0-32.0) pg MCHC 33.6 (31.0-37.0) g/dL RDW Std Deviation 42.9 (28.0-62.0) fl RDW Coeff of Judy 13 (11.0-15.0) % Plt Count 180 (150-400) K/uL MPV 10.40 (7.40-12.00) fL Neut % (Auto) 64.4 (48.0-80.0) % Lymph % (Auto) 19.7 (16.0-40.0) % Clarke % (Auto) 12.4 (0.0-15.0) % Eos % (Auto) 3.1 (0.0-7.0) % Baso % (Auto) 0.4 (0.0-1.5) % Neut # (Auto) 3.0 (1.4-5.7) K/uL Lymph # (Auto) 0.9 (0.6-2.4) K/uL Clarke # (Auto) 0.6 (0.0-0.8) K/uL Eos # (Auto) 0.1 (0.0-0.7) K/uL Baso # (Auto) 0.0 (0.0-0.1) K/uL Nucleated RBC % 0.0 /100WBC Nucleated RBCs # 0 K/uL Sodium 142 (136-148) mmol/L Potassium 3.8 (3.5-5.1) mmol/L Chloride 109 H (98-107) mmol/L Carbon Dioxide 25.5 (21.0-32.0) mmol/L BUN 26 H (7.0-18.0) mg/dL Creatinine 1.2 (0.8-1.3) mg/dL Est Cr Clr Drug Dosing 46.64 mL/min Estimated GFR (MDRD) 57.8 ml/min Glucose 103 (74-106) mg/dL Calcium 8.5 (8.5-10.1) mg/dL Phosphorus 2.5 L (2.6-4.7) mg/dL Magnesium 2.1 (1.8-2.4) mg/dL Result Diagrams: 08/19/20 06:25 08/19/20 06:25 Sepsis Event Note - Evaluation Sepsis Screening Result: No Definite Risk - Focused Exam Vital Signs: Vital Signs Temp Pulse Resp BP BP Pulse Ox 08/19/20 11:44 36.5 C 75 16 139/89 97 08/19/20 08:52 187/93 H 08/19/20 08:00 36.6 C 67 17 187/93 H 98 08/19/20 04:00 36.7 C 75 18 172/92 H 98 - Problem List Review Problem List Initiated/Reviewed/Updated: Yes - My Orders Last 24 Hours: My Active Orders 08/19/20 11:08 Admission Status [Patient Status] [ADT] Routine - Plan Plan:: This 84-year-old male admitted with TIA, and orthostatic hypotension. 1. TIA -MRI negative for acute stroke. -Echo returned which shows left ventricular ejection fraction 55 to 60% -Monitor on telemetry to evaluate for arrhythmia -ASA 81 daily -Neurochecks every 4 hours - ZIO patch on discharge 2. Bilateral hip pain - reports recent fall due to unsteady gait -Hip x-ray negative for acute fractures. 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 -Consult PT 3. History HTN, CAD -Continue statin -Add aspirin 4. orthostatic hypotension -Continue physical therapy -BP slightly on higher side but under acceptable range VTE prophylaxis: Lovenox CODE STATUS DNR/DNI Dispo: likely to SNF placement in next few days
[2020-08-19] MEDS: Simvastatin 40 MG Tab PO SCH (20:10)
[2020-08-20] MEDS: Aspirin 81 MG Tab.EC PO SCH (08:50)
[2020-08-20] MEDS: Lisinopril 5 MG Tab PO SCH (08:50)
--- NOTE | 2020-08-20 10:09 | PCM.PN ---
- General Info Date of Service: 08/20/20 Admission Dx/Problem (Free Text): Admission Diagnosis/Problem Admission Diagnosis/Problem TIA, Transient ischemic attack Subjective Update: Sitting up in chair, no concerns. No family at bedside this morning. Denies chest pain or SOB. No dizziness or lightheadedness. Placement pending. Functional Status: Reports: Pain Controlled, Tolerating Diet, Ambulating, Urinating - Review of Systems General: Reports: Weakness (generalized) HEENT: Reports: No Symptoms. Denies: Headaches, Sore Throat, Visual Changes Pulmonary: Reports: No Symptoms. Denies: Shortness of Breath Cardiovascular: Reports: No Symptoms. Denies: Chest Pain, Lightheadedness Gastrointestinal: Reports: No Symptoms. Denies: Abdominal Pain, Nausea, Vomiting Genitourinary: Reports: No Symptoms. Denies: Dysuria, Frequency Musculoskeletal: Reports: No Symptoms. Denies: Neck Pain Skin: Reports: No Symptoms Neurological: Reports: No Symptoms Psychiatric: Reports: No Symptoms - Patient Data Vitals - Most Recent: Last Vital Signs Temp 98.1 F 08/20/20 08:14 Pulse 69 08/20/20 08:14 Resp 17 08/20/20 08:14 BP 148/94 H 08/20/20 08:50 Pulse Ox 97 08/20/20 08:14 Orthostatic Blood Pressure [ 70/50 Standing] Orthostatic Blood Pressure [ 120/75 Sitting] Orthostatic Blood Pressure [ 130/80 Supine] Weight - Most Recent: 79.8 kg I&O - Last 24 Hours: Intake & Output 08/19/20 08/20/20 08/20/20 22:59 06:59 14:59 Intake Total 520 490 Output Total 150 980 Balance 370 -490 Med Orders - Current: Current Medications Acetaminophen (Acetaminophen 325 Mg Tab) 650 mg PO Q4H PRN PRN Reason: Pain (Mild 1-3)/fever Aspirin (Aspirin 81 Mg Tab.Ec) 81 mg PO DAILY [facility] Last Admin: 08/20/20 08:50 Dose: 81 mg Documented by: Docusate Sodium (Docusate Sodium 100 Mg Cap) 100 mg PO BID PRN PRN Reason: Constipation Enoxaparin Sodium (Enoxaparin 40 Mg/0.4 Ml Syringe) 40 mg SUBCUT Q24H [facility] Last Admin: 08/19/20 11:45 Dose: 40 mg Documented by: Labetalol HCl (Labetalol 100 Mg/20 Ml Mdv) 10 mg IVPUSH Q4H PRN PRN Reason: SBP>220 Lisinopril (Lisinopril 5 Mg Tab) 5 mg PO DAILY [facility] Last Admin: 08/20/20 08:50 Dose: 5 mg Documented by: Ondansetron HCl (Ondansetron 4 Mg/2 Ml Sdv) 4 mg IVPUSH Q4H PRN PRN Reason: Nausea Simvastatin (Simvastatin 40 Mg Tab) 40 mg PO BEDTIME [facility] Last Admin: 08/19/20 20:10 Dose: 40 mg Documented by: Sodium Chloride (Sodium Chloride 0.9% 2.5 Ml Syringe) 2.5 ml FLUSH ASDIRECTED PRN PRN Reason: Keep Vein Open Discontinued Medications Aspirin (Aspirin 325 Mg Tab) 325 mg PO ONETIME ONE Stop: 08/15/20 14:24 Last Admin: 08/15/20 15:21 Dose: 325 mg Documented by: Gadobenate Dimeglumine (Gadobenate Dimeglumine 529 Mg/Ml 20 Ml Sdv) 20 ml IVPUSH ONETIME STA Stop: 08/15/20 12:43 Last Admin: 08/15/20 12:42 Dose: 17 ml Documented by: Sodium Chloride (Normal Saline) 1,000 mls @ 100 mls/hr IV ONETIME ONE Stop: 08/16/20 20:42 Last Admin: 08/16/20 11:11 Dose: 100 mls/hr Documented by: Sodium Chloride (Normal Saline) 500 mls @ 150 mls/hr IV ONETIME ONE Stop: 08/17/20 13:52 Last Admin: 08/17/20 10:52 Dose: 150 mls/hr Documented by: Iopamidol (Iopamidol 755 Mg/Ml 500 Ml Multipack Bottle) 100 ml IVPUSH ONETIME STA Stop: 08/15/20 10:00 Last Admin: 08/15/20 10:00 Dose: 100 ml Documented by: Lisinopril (Lisinopril 10 Mg Tab) 20 mg PO DAILY [facility] Last Admin: 08/16/20 09:16 Dose: 20 mg Documented by: - Exam General: Alert, Oriented, Cooperative, No Acute Distress Neck: Supple Lungs: Clear to Auscultation, Normal Respiratory Effort Cardiovascular: Regular Rate, Regular Rhythm GI/Abdominal Exam: Normal Bowel Sounds, Soft, Non-Tender Extremities: Normal Inspection, Normal Range of Motion, Non-Tender, No Pedal Edema Neurological: No New Focal Deficit Psy/Mental Status: Alert, Normal Affect, Normal Mood - Patient Data Result Diagrams: 08/19/20 06:25 08/19/20 06:25 Sepsis Event Note - Evaluation Sepsis Screening Result: No Definite Risk - Focused Exam Vital Signs: Vital Signs Temp Pulse Resp BP BP BP Pulse Ox 08/20/20 08:50 148/94 H 08/20/20 08:14 98.1 F 69 17 148/94 H 97 08/20/20 04:00 98.6 F 75 18 142/78 H 98 08/20/20 00:00 98.2 F 68 18 165/82 H 98 - Problem List & Annotations (1) TIA (transient ischemic attack) SNOMED Code(s): 114002463 Code(s): G45.9 - TRANSIENT CEREBRAL ISCHEMIC ATTACK, UNSPECIFIED Status: Acute Current Visit: Yes (2) CVA (cerebral vascular accident) SNOMED Code(s): 845952116 Code(s): I63.9 - CEREBRAL INFARCTION, UNSPECIFIED Status: Suspected Current Visit: Yes (3) HTN (hypertension) SNOMED Code(s): 52912649 Code(s): I10 - ESSENTIAL (PRIMARY) HYPERTENSION Status: Chronic Current Visit: Yes (4) History of coronary artery bypass graft SNOMED Code(s): 954534656, 762367107 Code(s): Z95.1 - PRESENCE OF AORTOCORONARY BYPASS GRAFT Status: Chronic Current Visit: Yes (5) HLD (hyperlipidemia) SNOMED Code(s): 67460757 Code(s): E78.5 - HYPERLIPIDEMIA, UNSPECIFIED Status: Chronic Current Visit: Yes (6) CAD (coronary artery disease) SNOMED Code(s): 84898227 Code(s): I25.10 - ATHSCL HEART DISEASE OF [place] CORONARY ARTERY W/O ANG PCTRS Status: Chronic Current Visit: Yes (7) Dementia SNOMED Code(s): 58657063 Code(s): F03.90 - UNSPECIFIED DEMENTIA WITHOUT BEHAVIORAL DISTURBANCE Status: Chronic Current Visit: Yes (8) History of radical prostatectomy SNOMED Code(s): 596961212473116, 634871713322065 Code(s): Z90.79 - ACQUIRED ABSENCE OF OTHER GENITAL ORGAN(S) Status: Chronic Current Visit: Yes (9) Orthostatic hypotension SNOMED Code(s): 05690167 Code(s): I95.1 - ORTHOSTATIC HYPOTENSION Status: Acute Current Visit: Yes - Problem List Review Problem List Initiated/Reviewed/Updated: Yes - Plan Plan:: This 84-year-old male admitted with TIA, and orthostatic hypotension. 1. TIA -MRI negative for acute stroke. -Echo returned which shows left ventricular ejection fraction 55 to 60% -Monitor on telemetry to evaluate for arrhythmia -ASA 81 daily -Neurochecks every 4 hours - ZIO patch on discharge 2. Bilateral hip pain - reports recent fall due to unsteady gait -Hip x-ray negative for acute fractures. 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 -Consult PT 3. History HTN, CAD -Continue statin, ASA - Lisinopril restarted at lower dose, monitor BP. 4. orthostatic hypotension -Continue physical therapy 5. Lewy body dementia - Stable. VTE prophylaxis: Lovenox CODE STATUS DNR/DNI Dispo: likely to SNF placement in next few days , case management and social work consulted.
[2020-08-20] MEDS: Enoxaparin 40 MG/0.4 ML Syringe SUBCUT SCH (12:04)
[2020-08-20] MEDS: Simvastatin 40 MG Tab PO SCH (20:03)
[2020-08-21 05:49] LABS: CARBON DIOXIDE,CO2 26.3 mmol/L (21.0-32.0); POTASSIUM,K 4.2 mmol/L (3.5-5.1)
--- NOTE | 2020-08-21 08:01 | PCM.PN ---
- General Info Date of Service: 08/21/20 Admission Dx/Problem (Free Text): Admission Diagnosis/Problem Admission Diagnosis/Problem TIA, Transient ischemic attack Subjective Update: Doing well this morning. Denies any chest pain shortness of breath. Mild lightheadedness but this improves quickly. Alert and oriented to person intermittently to place. Patient is eager for physical therapy and rehabilitation then returning home. He is in agreement of going to [facility]. Functional Status: Reports: Pain Controlled, Tolerating Diet, Ambulating, Urinating - Review of Systems General: Reports: No Symptoms. Denies: Fatigue, Malaise Pulmonary: Reports: No Symptoms. Denies: Shortness of Breath Cardiovascular: Reports: Lightheadedness (But better now). Denies: Chest Pain Gastrointestinal: Reports: No Symptoms. Denies: Abdominal Pain, Nausea, Vomiting Genitourinary: Reports: No Symptoms. Denies: Dysuria, Frequency, Burning Musculoskeletal: Reports: No Symptoms Skin: Reports: No Symptoms Neurological: Reports: No Symptoms Psychiatric: Reports: No Symptoms - Patient Data Vitals - Most Recent: Last Vital Signs Temp 97.3 F 08/21/20 07:30 Pulse 72 08/21/20 07:30 Resp 12 08/21/20 07:30 BP 151/97 H 08/21/20 07:30 Pulse Ox 98 08/21/20 07:30 Orthostatic Blood Pressure [ 70/50 Standing] Orthostatic Blood Pressure [ 120/75 Sitting] Orthostatic Blood Pressure [ 130/80 Supine] Weight - Most Recent: 79.968 kg I&O - Last 24 Hours: Intake & Output 08/20/20 08/21/20 08/21/20 22:59 06:59 14:59 Intake Total 860 940 Balance 860 940 Lab Results Last 24 Hours: Laboratory Results - last 24 hr 08/21/20 08/21/20 Range/Units 05:26 05:26 WBC 5.43 (4.0-11.0) K/uL RBC 5.54 (4.50-5.90) M/uL Hgb 16.9 (13.0-17.0) g/dL Hct 49.7 (38.0-50.0) % MCV 89.7 (80.0-98.0) fL MCH 30.5 (27.0-32.0) pg MCHC 34.0 (31.0-37.0) g/dL RDW Std Deviation 43.1 (28.0-62.0) fl RDW Coeff of Judy 13 (11.0-15.0) % Plt Count 163 (150-400) K/uL MPV 10.30 (7.40-12.00) fL Neut % (Auto) 65.6 (48.0-80.0) % Lymph % (Auto) 20.6 (16.0-40.0) % [place] % (Auto) 9.0 (0.0-15.0) % Eos % (Auto) 4.2 (0.0-7.0) % Baso % (Auto) 0.6 (0.0-1.5) % Neut # (Auto) 3.6 (1.4-5.7) K/uL Lymph # (Auto) 1.1 (0.6-2.4) K/uL [place] # (Auto) 0.5 (0.0-0.8) K/uL Eos # (Auto) 0.2 (0.0-0.7) K/uL Baso # (Auto) 0.0 (0.0-0.1) K/uL Nucleated RBC % 0.0 /100WBC Nucleated RBCs # 0 K/uL Sodium 139 (136-148) mmol/L Potassium 4.2 (3.5-5.1) mmol/L Chloride 106 (98-107) mmol/L Carbon Dioxide 26.3 (21.0-32.0) mmol/L BUN 32 H (7.0-18.0) mg/dL Creatinine 1.3 (0.8-1.3) mg/dL Est Cr Clr Drug Dosing 43.05 mL/min Estimated GFR (MDRD) 52.7 ml/min Glucose 102 (74-106) mg/dL Calcium 8.7 (8.5-10.1) mg/dL Magnesium 2.1 (1.8-2.4) mg/dL Med Orders - Current: Current Medications Acetaminophen (Acetaminophen 325 Mg Tab) 650 mg PO Q4H PRN PRN Reason: Pain (Mild 1-3)/fever Aspirin (Aspirin 81 Mg Tab.Ec) 81 mg PO DAILY [facility] Last Admin: 08/20/20 08:50 Dose: 81 mg Documented by: Docusate Sodium (Docusate Sodium 100 Mg Cap) 100 mg PO BID PRN PRN Reason: Constipation Enoxaparin Sodium (Enoxaparin 40 Mg/0.4 Ml Syringe) 40 mg SUBCUT Q24H [facility] Last Admin: 08/20/20 12:04 Dose: 40 mg Documented by: Labetalol HCl (Labetalol 100 Mg/20 Ml Mdv) 10 mg IVPUSH Q4H PRN PRN Reason: SBP>220 Lisinopril (Lisinopril 5 Mg Tab) 5 mg PO DAILY [facility] Last Admin: 08/20/20 08:50 Dose: 5 mg Documented by: Ondansetron HCl (Ondansetron 4 Mg/2 Ml Sdv) 4 mg IVPUSH Q4H PRN PRN Reason: Nausea Simvastatin (Simvastatin 40 Mg Tab) 40 mg PO BEDTIME [facility] Last Admin: 08/20/20 20:03 Dose: 40 mg Documented by: Sodium Chloride (Sodium Chloride 0.9% 2.5 Ml Syringe) 2.5 ml FLUSH ASDIRECTED PRN PRN Reason: Keep Vein Open Discontinued Medications Aspirin (Aspirin 325 Mg Tab) 325 mg PO ONETIME ONE Stop: 08/15/20 14:24 Last Admin: 08/15/20 15:21 Dose: 325 mg Documented by: Gadobenate Dimeglumine (Gadobenate Dimeglumine 529 Mg/Ml 20 Ml Sdv) 20 ml IVPUSH ONETIME STA Stop: 08/15/20 12:43 Last Admin: 08/15/20 12:42 Dose: 17 ml Documented by: Sodium Chloride (Normal Saline) 1,000 mls @ 100 mls/hr IV ONETIME ONE Stop: 08/16/20 20:42 Last Admin: 08/16/20 11:11 Dose: 100 mls/hr Documented by: Sodium Chloride (Normal Saline) 500 mls @ 150 mls/hr IV ONETIME ONE Stop: 08/17/20 13:52 Last Admin: 08/17/20 10:52 Dose: 150 mls/hr Documented by: Iopamidol (Iopamidol 755 Mg/Ml 500 Ml Multipack Bottle) 100 ml IVPUSH ONETIME STA Stop: 08/15/20 10:00 Last Admin: 08/15/20 10:00 Dose: 100 ml Documented by: Lisinopril (Lisinopril 10 Mg Tab) 20 mg PO DAILY [facility] Last Admin: 08/16/20 09:16 Dose: 20 mg Documented by: - Exam General: Alert, Oriented (X2 to person and place), Cooperative, No Acute Distress Lungs: Clear to Auscultation, Normal Respiratory Effort Cardiovascular: Regular Rate, Regular Rhythm GI/Abdominal Exam: Normal Bowel Sounds, Soft, Non-Tender Back Exam: Normal Inspection, Full Range of Motion Extremities: Normal Inspection, Normal Range of Motion, Non-Tender, No Pedal Edema Neurological: No New Focal Deficit Psy/Mental Status: Alert, Normal Affect, Normal Mood - Patient Data Lab Results Last 24 hrs: Laboratory Results - last 24 hr 08/21/20 08/21/20 Range/Units 05:26 05:26 WBC 5.43 (4.0-11.0) K/uL RBC 5.54 (4.50-5.90) M/uL Hgb 16.9 (13.0-17.0) g/dL Hct 49.7 (38.0-50.0) % MCV 89.7 (80.0-98.0) fL MCH 30.5 (27.0-32.0) pg MCHC 34.0 (31.0-37.0) g/dL RDW Std Deviation 43.1 (28.0-62.0) fl RDW Coeff of Judy 13 (11.0-15.0) % Plt Count 163 (150-400) K/uL MPV 10.30 (7.40-12.00) fL Neut % (Auto) 65.6 (48.0-80.0) % Lymph % (Auto) 20.6 (16.0-40.0) % [place] % (Auto) 9.0 (0.0-15.0) % Eos % (Auto) 4.2 (0.0-7.0) % Baso % (Auto) 0.6 (0.0-1.5) % Neut # (Auto) 3.6 (1.4-5.7) K/uL Lymph # (Auto) 1.1 (0.6-2.4) K/uL [place] # (Auto) 0.5 (0.0-0.8) K/uL Eos # (Auto) 0.2 (0.0-0.7) K/uL Baso # (Auto) 0.0 (0.0-0.1) K/uL Nucleated RBC % 0.0 /100WBC Nucleated RBCs # 0 K/uL Sodium 139 (136-148) mmol/L Potassium 4.2 (3.5-5.1) mmol/L Chloride 106 (98-107) mmol/L Carbon Dioxide 26.3 (21.0-32.0) mmol/L BUN 32 H (7.0-18.0) mg/dL Creatinine 1.3 (0.8-1.3) mg/dL Est Cr Clr Drug Dosing 43.05 mL/min Estimated GFR (MDRD) 52.7 ml/min Glucose 102 (74-106) mg/dL Calcium 8.7 (8.5-10.1) mg/dL Magnesium 2.1 (1.8-2.4) mg/dL Result Diagrams: 08/21/20 05:26 08/21/20 05:26 Sepsis Event Note - Evaluation Sepsis Screening Result: No Definite Risk - Focused Exam Vital Signs: Vital Signs Temp Pulse Resp BP Pulse Ox 08/21/20 07:30 97.3 F 72 12 151/97 H 98 08/21/20 04:00 97.8 F 74 18 142/72 H 95 08/20/20 23:00 97.9 F 70 16 168/92 H 95 - Problem List & Annotations (1) TIA (transient ischemic attack) SNOMED Code(s): 748256229 Code(s): G45.9 - TRANSIENT CEREBRAL ISCHEMIC ATTACK, UNSPECIFIED Status: Acute Current Visit: Yes (2) CVA (cerebral vascular accident) SNOMED Code(s): 812140051 Code(s): I63.9 - CEREBRAL INFARCTION, UNSPECIFIED Status: Suspected Current Visit: Yes (3) HTN (hypertension) SNOMED Code(s): 77192731 Code(s): I10 - ESSENTIAL (PRIMARY) HYPERTENSION Status: Chronic Current Visit: Yes (4) History of coronary artery bypass graft SNOMED Code(s): 648232003, 022281982 Code(s): Z95.1 - PRESENCE OF AORTOCORONARY BYPASS GRAFT Status: Chronic Current Visit: Yes (5) HLD (hyperlipidemia) SNOMED Code(s): 41480242 Code(s): E78.5 - HYPERLIPIDEMIA, UNSPECIFIED Status: Chronic Current Visit: Yes (6) CAD (coronary artery disease) SNOMED Code(s): 03622499 Code(s): I25.10 - ATHSCL HEART DISEASE OF [place] CORONARY ARTERY W/O ANG PCTRS Status: Chronic Current Visit: Yes (7) Dementia SNOMED Code(s): 89986253 Code(s): F03.90 - UNSPECIFIED DEMENTIA WITHOUT BEHAVIORAL DISTURBANCE Status: Chronic Current Visit: Yes (8) History of radical prostatectomy SNOMED Code(s): 301969124607590, 111125158423762 Code(s): Z90.79 - ACQUIRED ABSENCE OF OTHER GENITAL ORGAN(S) Status: Chronic Current Visit: Yes (9) Orthostatic hypotension SNOMED Code(s): 43177158 Code(s): I95.1 - ORTHOSTATIC HYPOTENSION Status: Acute Current Visit: Yes - Problem List Review Problem List Initiated/Reviewed/Updated: Yes - Plan Plan:: This 84-year-old male admitted with TIA, and orthostatic hypotension. 1. TIA -MRI negative for acute stroke. -Echo returned which shows left ventricular ejection fraction 55 to 60% -Monitor on telemetry to evaluate for arrhythmia -ASA 81 daily -Neurochecks every 4 hours - ZIO patch on discharge 2. Bilateral hip pain - reports recent fall due to unsteady gait -Hip x-ray negative for acute fractures. 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 -Consult PT 3. History HTN, CAD -Continue statin, ASA - Lisinopril restarted at lower dose\ -Blood pressure more stable. Continue to monitor 4. orthostatic hypotension -Continue physical therapy 5. Lewy body dementia - Stable. VTE prophylaxis: Lovenox CODE STATUS DNR/DNI Dispo: likely to SNF placement in next few days , case management and social work consulted.
[2020-08-21] MEDS: Lisinopril 5 MG Tab PO SCH (08:10)
[2020-08-21] MEDS: Aspirin 81 MG Tab.EC PO SCH (08:11)
--- NOTE | 2020-08-21 09:46 | ECHO ---
EXAM DATE: 08/18/20 PATIENT'S AGE: 84 The ECHO report has been scanned into [employer] [facility] and can be seen in this patient's EMR (Electronic Medical Record) under the REPORTS section. The report has also been scanned into PACS. KODY
[2020-08-21] MEDS: Enoxaparin 40 MG/0.4 ML Syringe SUBCUT SCH (12:51)
[2020-08-21] MEDS: Simvastatin 40 MG Tab PO SCH (20:13)
[2020-08-21] MEDS: Docusate Sodium 100 MG Cap PO PRN (20:13)
--- NOTE | 2020-08-22 08:08 | PCM.PN ---
- General Info Date of Service: 08/22/20 Admission Dx/Problem (Free Text): Admission Diagnosis/Problem Admission Diagnosis/Problem TIA, Transient ischemic attack Subjective Update: Sitting up in chair doing well. Denies any pain. Denies any dizziness or lightheadedness. Eager to go home/rehab. Patient notified he will likely go in the morning. Has no concerns today. Functional Status: Reports: Pain Controlled, Tolerating Diet, Ambulating, Urinating - Review of Systems General: Reports: No Symptoms. Denies: Weakness, Fatigue HEENT: Reports: No Symptoms. Denies: Headaches, Sore Throat Pulmonary: Reports: No Symptoms. Denies: Shortness of Breath Cardiovascular: Reports: No Symptoms. Denies: Chest Pain, Lightheadedness Gastrointestinal: Reports: No Symptoms. Denies: Abdominal Pain, Nausea, Vomiting Genitourinary: Reports: No Symptoms. Denies: Dysuria, Frequency Musculoskeletal: Reports: No Symptoms Skin: Reports: No Symptoms Neurological: Reports: No Symptoms Psychiatric: Reports: No Symptoms - Patient Data Vitals - Most Recent: Last Vital Signs Temp 96.6 F L 08/22/20 07:38 Pulse 65 08/22/20 07:38 Resp 16 08/22/20 07:38 BP 175/88 H 08/22/20 07:38 Pulse Ox 96 08/22/20 07:38 Orthostatic Blood Pressure [ 70/50 Standing] Orthostatic Blood Pressure [ 120/75 Sitting] Orthostatic Blood Pressure [ 130/80 Supine] Weight - Most Recent: 82.781 kg I&O - Last 24 Hours: Intake & Output 08/21/20 08/22/20 08/22/20 22:59 06:59 14:59 Intake Total 780 440 Output Total 200 300 Balance 580 140 Med Orders - Current: Current Medications Acetaminophen (Acetaminophen 325 Mg Tab) 650 mg PO Q4H PRN PRN Reason: Pain (Mild 1-3)/fever Aspirin (Aspirin 81 Mg Tab.Ec) 81 mg PO DAILY [facility] Last Admin: 08/21/20 08:11 Dose: 81 mg Documented by: Docusate Sodium (Docusate Sodium 100 Mg Cap) 100 mg PO BID PRN PRN Reason: Constipation Last Admin: 08/21/20 20:13 Dose: 100 mg Documented by: Enoxaparin Sodium (Enoxaparin 40 Mg/0.4 Ml Syringe) 40 mg SUBCUT Q24H [facility] Last Admin: 08/21/20 12:51 Dose: 40 mg Documented by: Labetalol HCl (Labetalol 100 Mg/20 Ml Mdv) 10 mg IVPUSH Q4H PRN PRN Reason: SBP>220 Lisinopril (Lisinopril 5 Mg Tab) 5 mg PO DAILY [facility] Last Admin: 08/21/20 08:10 Dose: 5 mg Documented by: Ondansetron HCl (Ondansetron 4 Mg/2 Ml Sdv) 4 mg IVPUSH Q4H PRN PRN Reason: Nausea Simvastatin (Simvastatin 40 Mg Tab) 40 mg PO BEDTIME [facility] Last Admin: 08/21/20 20:13 Dose: 40 mg Documented by: Sodium Chloride (Sodium Chloride 0.9% 2.5 Ml Syringe) 2.5 ml FLUSH ASDIRECTED PRN PRN Reason: Keep Vein Open Discontinued Medications Aspirin (Aspirin 325 Mg Tab) 325 mg PO ONETIME ONE Stop: 08/15/20 14:24 Last Admin: 08/15/20 15:21 Dose: 325 mg Documented by: Gadobenate Dimeglumine (Gadobenate Dimeglumine 529 Mg/Ml 20 Ml Sdv) 20 ml IVPUSH ONETIME STA Stop: 08/15/20 12:43 Last Admin: 08/15/20 12:42 Dose: 17 ml Documented by: Sodium Chloride (Normal Saline) 1,000 mls @ 100 mls/hr IV ONETIME ONE Stop: 08/16/20 20:42 Last Admin: 08/16/20 11:11 Dose: 100 mls/hr Documented by: Sodium Chloride (Normal Saline) 500 mls @ 150 mls/hr IV ONETIME ONE Stop: 08/17/20 13:52 Last Admin: 08/17/20 10:52 Dose: 150 mls/hr Documented by: Iopamidol (Iopamidol 755 Mg/Ml 500 Ml Multipack Bottle) 100 ml IVPUSH ONETIME STA Stop: 08/15/20 10:00 Last Admin: 08/15/20 10:00 Dose: 100 ml Documented by: Lisinopril (Lisinopril 10 Mg Tab) 20 mg PO DAILY [facility] Last Admin: 08/16/20 09:16 Dose: 20 mg Documented by: - Exam Quality Assessment: DVT Prophylaxis. No: Supplemental Oxygen General: Alert, Oriented, Cooperative Lungs: Clear to Auscultation, Normal Respiratory Effort Cardiovascular: Regular Rate, Regular Rhythm GI/Abdominal Exam: Normal Bowel Sounds, Soft, Non-Tender Extremities: Normal Inspection, Normal Range of Motion, Non-Tender, No Pedal Edema Neurological: No New Focal Deficit Psy/Mental Status: Alert, Normal Affect, Normal Mood - Patient Data Result Diagrams: 08/21/20 05:26 08/21/20 05:26 Sepsis Event Note - Evaluation Sepsis Screening Result: No Definite Risk - Focused Exam Vital Signs: Vital Signs Temp Pulse Resp BP Pulse Ox 08/22/20 07:38 96.6 F L 65 16 175/88 H 96 08/22/20 04:00 97.1 F 70 16 120/66 95 08/22/20 00:00 97.4 F 73 16 138/65 97 - Problem List & Annotations (1) TIA (transient ischemic attack) SNOMED Code(s): 900832846 Code(s): G45.9 - TRANSIENT CEREBRAL ISCHEMIC ATTACK, UNSPECIFIED Status: Ac [facility] Current Visit: Yes (2) CVA (cerebral vascular accident) SNOMED Code(s): 591926720 Code(s): I63.9 - CEREBRAL INFARCTION, UNSPECIFIED Status: Suspected Current Visit: Yes (3) HTN (hypertension) SNOMED Code(s): 50657931 Code(s): I10 - ESSENTIAL (PRIMARY) HYPERTENSION Status: Chronic Current Visit: Yes (4) History of coronary artery bypass graft SNOMED Code(s): 585217014, 452244662 Code(s): Z95.1 - PRESENCE OF AORTOCORONARY BYPASS GRAFT Status: Chronic Current Visit: Yes (5) HLD (hyperlipidemia) SNOMED Code(s): 83750738 Code(s): E78.5 - HYPERLIPIDEMIA, UNSPECIFIED Status: Chronic Current Visit: Yes (6) CAD (coronary artery disease) SNOMED Code(s): 69865885 Code(s): I25.10 - ATHSCL HEART DISEASE OF [place] CORONARY ARTERY W/O ANG PCTRS Status: Chronic Current Visit: Yes (7) Dementia SNOMED Code(s): 54738773 Code(s): F03.90 - UNSPECIFIED DEMENTIA WITHOUT BEHAVIORAL DISTURBANCE Status: Chronic Current Visit: Yes (8) History of radical prostatectomy SNOMED Code(s): 237175571981975, 275226231114007 Code(s): Z90.79 - ACQUIRED ABSENCE OF OTHER GENITAL ORGAN(S) Status: Chronic Current Visit: Yes (9) Orthostatic hypotension SNOMED Code(s): 13208331 Code(s): I95.1 - ORTHOSTATIC HYPOTENSION Status: Acute Current Visit: Yes - Problem List Review Problem List Initiated/Reviewed/Updated: Yes - Plan Plan:: This 84-year-old male admitted with TIA, and orthostatic hypotension. 1. TIA -MRI negative for acute stroke. -Echo returned which shows left ventricular ejection fraction 55 to 60% -Monitor on telemetry to evaluate for arrhythmia -ASA 81 daily -Neurochecks every 4 hours - ZIO patch on discharge 2. History HTN, CAD -Continue statin, ASA - Lisinopril restarted at lower dose -Blood pressure more stable. Continue to monitor 3. orthostatic hypotension/deconditioning -Continue physical therapy 4. Lewy body dementia - Stable. VTE prophylaxis: Lovenox CODE STATUS DNR/DNI Dispo:[facility] in am, spoke with Dr العراقي and he has accepted patient for transfer to [place].
[2020-08-22] MEDS: Aspirin 81 MG Tab.EC PO SCH (09:13)
[2020-08-22] MEDS: Docusate Sodium 100 MG Cap PO PRN (09:14)
[2020-08-22] MEDS: Lisinopril 5 MG Tab PO SCH (09:19)
[2020-08-22] MEDS: Enoxaparin 40 MG/0.4 ML Syringe SUBCUT SCH (12:01)
[2020-08-22] MEDS: Simvastatin 40 MG Tab PO SCH (20:28)
[2020-08-23] MEDS: Docusate Sodium 100 MG Cap PO PRN (01:49)
[2020-08-23 07:49] VITALS: BP 174/86; PULSE 63
[2020-08-23] MEDS: Lisinopril 5 MG Tab PO SCH (08:36)
[2020-08-23] MEDS: Aspirin 81 MG Tab.EC PO SCH (08:37)
--- NOTE | 2020-08-23 08:38 | PCM.DCSUM1 ---
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 When patient arrived to the ER he was unable to follow commands or answer questions. The noted he was at his baseline around 7:00 and around 745 is when these symptoms are noted. Patient was sent to CT for evaluation. By the time he was returning back to the ER he was nearly back to normal moving all extremities and speaking. Patient does have history of dementia. reports that she woke up early this morning around 7 and noticed that he was standing straight at the door closed. She asked him what he was doing and he reported that he was going to the bathroom even though the bathroom was behind him. She got up and helped him to the bathroom and he just seemed not himself and confused. She said they got him back to bed and then she called the ambulance. The ambulance crew was the one who noticed a left-sided weakness. aGbe is a poor historian and denies any concerns at happened this morning and is unaware of any confusion or weakness that happened this morning. He denies current chest pain shortness of breath fevers chills palpitations. He denies any concerns with abdominal pain urinary troubles or black or bloody stools. The did report mild diarrhea the past couple days but nothing significant. He does report bilateral hip pain that has been nagging him for few months. The does report he has fallen recently patient is uncertain if he fell on one hip or not but has been ambulatory at home with his walker. Patient reports tobacco use in his 20s but has not used anything since. Rare alcohol use and no recreational drug use. In the ER lab work essentially within normal limits. CBC normal. INR 1.04 sodium 137, potassium 3.7, BUN 49, creatinine 1.5 which is at baseline. Glucose 95 AST ALT and bilirubin all within normal limits troponin negative. Lipase 169. EKG in the ER obtained which revealed sinus rhythm with no ST or T wave changes heart rate 73. Chest x-ray obtained showed elevation of left hemidiaphragm with left basilar atelectasis. Head CT obtained for stroke protocol which revealed no intracranial abnormalities. CTA of head and neck obtained to further rule out thrombotic stroke. Head CT revealed no proximal intracranial large vessel occlusion. Diffuse intracranial atherosclerosis. Common carotid arteries are patent. There is mild less than 50% stenosis at the origins of the internal carotid arteries bilaterally. Patient was ruled out for TPA as he became normal within the ER. There was discussion among family if he would want this or if the POA who is the son would want this. The son was contacted but unsure of decision at this time. Patient will be admitted for TIA possible CVA work-up. PCP Dr. العراقي Diagnosis: Stroke: No - Discharge Data Discharge Date: 08/23/20 Discharge Disposition: DC/Tfer to SNF 03 Condition: Stable - Referral to Home Health Date of Face to Face Encounter: 08/17/20 Primary Care Physician: Jagdish العراقي MD - Discharge Diagnosis/Problem(s) (1) TIA (transient ischemic attack) SNOMED Code(s): 914075680 ICD Code: G45.9 - TRANSIENT CEREBRAL ISCHEMIC ATTACK, UNSPECIFIED Status: Acute Current Visit: Yes (2) HTN (hypertension) SNOMED Code(s): 55054584 ICD Code: I10 - ESSENTIAL (PRIMARY) HYPERTENSION Status: Chronic Current Visit: Yes (3) History of coronary artery bypass graft SNOMED Code(s): 389617616, 472073750 ICD Code: Z95.1 - PRESENCE OF AORTOCORONARY BYPASS GRAFT Status: Chronic Current Visit: Yes (4) HLD (hyperlipidemia) SNOMED Code(s): 59691358 ICD Code: E78.5 - HYPERLIPIDEMIA, UNSPECIFIED Status: Chronic Current Visit: Yes (5) CAD (coronary artery disease) SNOMED Code(s): 99990748 ICD Code: I25.10 - ATHSCL HEART DISEASE OF [place] CORONARY ARTERY W/O ANG PCTRS Status: Chronic Current Visit: Yes (6) Dementia SNOMED Code(s): 49178529 ICD Code: F03.90 - UNSPECIFIED DEMENTIA WITHOUT BEHAVIORAL DISTURBANCE Status: Chronic Current Visit: Yes (7) History of radical prostatectomy SNOMED Code(s): 468469795296087, 779177701772970 ICD Code: Z90.79 - ACQUIRED ABSENCE OF OTHER GENITAL ORGAN(S) Status: Chronic Current Visit: Yes (8) Orthostatic hypotension SNOMED Code(s): 67310879 ICD Code: I95.1 - ORTHOSTATIC HYPOTENSION Status: Acute Current Visit: Yes - Patient Summary/Data Consults: Consultations 08/15/20 16:01 PT Evaluation and Treatment [CONS] Routine 08/18/20 12:47 Consult to Case Management/Wire Loop Machine Operator [CONS] Routine 08/18/20 12:53 Consult to Home Health [CONS] Routine Hospital Course: Admission diagnoses TIA, suspected CVA Discharge diagnoses TIA Orthostatic hypotension Generalized weakness and debility Other PMH hypertension History CABG HLD CAD Lewy body dementia History of radical prostatectomy Atilio was admitted secondary to some confusion and left-sided weakness noted at home. He was admitted and evaluated for CVA. MRI and CTA head and neck revealed no signs of acute infarct. Suspect TIA. A1c obtained which was 6.1. Lipid panel well-controlled on statin cholesterol 135 LDL 73 HDL 39 triglycerides 117 TSH 2.07 during his stay lab work remained stable. He was noted to have significant orthostatic hypotension and lisinopril was held. He did have mild improvement with holding of lisinopril and orthostatic hypotension but then continued to have elevated blood pressures during the day. Lisinopril was restarted at 5 mg daily had blood pressures have been well controlled. He was given IV fluids for possible some dehydration. and family concerned that the would be unable to care for him at home with this weakness and debility. It was decided that he would go to [facility] for short-term rehabilitation with the ultimate goal of getting back home to be independent with . Patient will continue with Zocor 40 mg at home lisinopril 5 mg and aspirin 81 mg daily. To complete stroke work-up he will be placed on Zio patch for 14 days. During his stay here telemetry has not shown any signs of arrhythmia. I did speak with Dr. العراقي who is also PCP and he has accepted patient to transfer for [facility] today. He is to follow-up with the ER or clinic if concerns should arise sooner. Patient will have PT OT and speech therapy evaluation and treatment while at [facility]. - Patient Instructions Diet: Heart Healthy Diet Activity: As Tolerated Driving: Do Not Drive Showering/Bathing: May Shower Notify Provider of: Fever, Increased Pain, Swelling and Redness, Drainage, Nausea and/or Vomiting Other/Special Instructions: PT/OT/ST to evaluate and treat. Monitor BP daily, if SBP <100 hold Lisinopril. - Discharge Plan *PRESCRIPTION DRUG MONITORING PROGRAM REVIEWED*: Not Applicable *COPY OF PRESCRIPTION DRUG MONITORING REPORT IN PATIENT GIRISH: Not Applicable Home Medications: Home Meds Simvastatin [Zocor] 40 mg PO DAILY 05/25/16 [History] Aspirin [Halfprin] 81 mg PO DAILY tab.ec 08/21/20 [Rx] Docusate Sodium [Colace] 100 mg PO BID PRN cap 08/21/20 [Rx] lisinopriL [Prinivil] 5 mg PO DAILY tablet 08/21/20 [Rx] Oxygen Therapy Mode: Room Air Patient Handouts: Coronary Artery Disease, Male, Orthostatic Hypotension Referrals: Jagdish العراقي MD [Primary Care Provider] - 08/24/20 12:30 pm - Discharge Summary/Plan Comment DC Time >30 min.: Yes (Establishing transfer to [facility] as well as speaking with Dr. العراقي.) - Patient Data Vitals - Most Recent: Last Vital Signs Temp 97.2 F 08/23/20 07:48 Pulse 63 08/23/20 07:48 Resp 14 08/23/20 07:48 BP 174/86 H 08/23/20 07:48 Pulse Ox 96 08/23/20 07:48 Orthostatic Blood Pressure [ 70/50 Standing] Orthostatic Blood Pressure [ 120/75 Sitting] Orthostatic Blood Pressure [ 130/80 Supine] Weight - Most Recent: 82.65 kg I&O - Last 24 hours: Intake & Output 08/22/20 08/23/20 08/23/20 22:59 06:59 14:59 Intake Total 905 650 Output Total 0 Balance 905 650 Lab Results - Last 24 hrs: Laboratory Results - last 24 hr 08/22/20 Range/Units 14:25 SARS-CoV-2 RNA (BIJU) NEGATIVE (NEGATIVE) Med Orders - Current: Current Medications Acetaminophen (Acetaminophen 325 Mg Tab) 650 mg PO Q4H PRN PRN Reason: Pain (Mild 1-3)/fever Last Admin: 08/22/20 09:15 Dose: 650 mg Documented by: Aspirin (Aspirin 81 Mg Tab.Ec) 81 mg PO DAILY [facility] Last Admin: 08/22/20 09:13 Dose: 81 mg Documented by: Docusate Sodium (Docusate Sodium 100 Mg Cap) 100 mg PO BID PRN PRN Reason: Constipation Last Admin: 08/23/20 01:49 Dose: 100 mg Documented by: Enoxaparin Sodium (Enoxaparin 40 Mg/0.4 Ml Syringe) 40 mg SUBCUT Q24H [facility] Last Admin: 08/22/20 12:01 Dose: 40 mg Documented by: Labetalol HCl (Labetalol 100 Mg/20 Ml Mdv) 10 mg IVPUSH Q4H PRN PRN Reason: SBP>220 Lisinopril (Lisinopril 5 Mg Tab) 5 mg PO DAILY [facility] Last Admin: 08/22/20 09:19 Dose: Not Given Documented by: Ondansetron HCl (Ondansetron 4 Mg/2 Ml Sdv) 4 mg IVPUSH Q4H PRN PRN Reason: Nausea Simvastatin (Simvastatin 40 Mg Tab) 40 mg PO BEDTIME [facility] Last Admin: 08/22/20 20:28 Dose: 40 mg Documented by: Sodium Chloride (Sodium Chloride 0.9% 2.5 Ml Syringe) 2.5 ml FLUSH ASDIRECTED PRN PRN Reason: Keep Vein Open Discontinued Medications Aspirin (Aspirin 325 Mg Tab) 325 mg PO ONETIME ONE Stop: 08/15/20 14:24 Last Admin: 08/15/20 15:21 Dose: 325 mg Documented by: Gadobenate Dimeglumine (Gadobenate Dimeglumine 529 Mg/Ml 20 Ml Sdv) 20 ml IVPUSH ONETIME STA Stop: 08/15/20 12:43 Last Admin: 08/15/20 12:42 Dose: 17 ml Documented by: Sodium Chloride (Normal Saline) 1,000 mls @ 100 mls/hr IV ONETIME ONE Stop: 08/16/20 20:42 Last Admin: 08/16/20 11:11 Dose: 100 mls/hr Documented by: Sodium Chloride (Normal Saline) 500 mls @ 150 mls/hr IV ONETIME ONE Stop: 08/17/20 13:52 Last Admin: 08/17/20 10:52 Dose: 150 mls/hr Documented by: Iopamidol (Iopamidol 755 Mg/Ml 500 Ml Multipack Bottle) 100 ml IVPUSH ONETIME STA Stop: 08/15/20 10:00 Last Admin: 08/15/20 10:00 Dose: 100 ml Documented by: Lisinopril (Lisinopril 10 Mg Tab) 20 mg PO DAILY [facility] Last Admin: 08/16/20 09:16 Dose: 20 mg Documented by: - Exam General: Reports: Alert, Oriented (Has moments of confusion and disorientation. But easily reoriented.), Cooperative, No Acute Distress Lungs: Reports: Clear to Auscultation, Normal Respiratory Effort Cardiovascular: Reports: Regular Rate, Regular Rhythm GI/Abdominal Exam: Normal Bowel Sounds, Soft, Non-Tender Back Exam: Reports: Normal Inspection, Full Range of Motion Extremities: Normal Inspection, Normal Range of Motion, Non-Tender Skin: Reports: Warm, Dry Neurological: Reports: No New Focal Deficit Psy/Mental Status: Reports: Alert, Normal Affect, Normal Mood
== END 2020-08-23 11:10 | DRG 69 ==
LOC: MW.ED 08:03 → MW.MS 10:27 → OBSVTOIN 08-18 12:50
PROVIDERS: ADMIT Student in an Organized Health Care Education/Training Program; ATTEND Student in an Organized Health Care Education/Training Program
DX: G45.9 Transient cerebral ischemic attack, unspecified (principal); J98.11 Atelectasis; E78.5 Hyperlipidemia, unspecified; I95.1 Orthostatic hypotension; I25.10 Atherosclerotic heart disease of native coronary artery without angina pectoris; F03.90 Unspecified dementia, unspecified severity, without behavioral disturbance, psychotic disturbance, mood disturbance, and anxiety; M25.552 Pain in left hip; M25.551 Pain in right hip; I10 Essential (primary) hypertension; G31.83 Neurocognitive disorder with Lewy bodies; Z66 Do not resuscitate; F02.80 Dementia in other diseases classified elsewhere, unspecified severity, without behavioral disturbance, psychotic disturbance, mood disturbance, and anxiety; R53.81 Other malaise; H91.90 Unspecified hearing loss, unspecified ear; E78.00 Pure hypercholesterolemia, unspecified; M16.0 Bilateral primary osteoarthritis of hip; Z90.79 Acquired absence of other genital organ(s); Z95.1 Presence of aortocoronary bypass graft; Z79.899 Other long term (current) drug therapy; Z20.822 Contact with and (suspected) exposure to COVID-19
CPT/HCPCS: 36415 ×3; 70450; 70496; 70498; 70553; 71045; 73522; 80048 ×2; 80053; 80061; 80305; 80307; 81001; 83036; 83690; 83735 ×3; 84443; 84484; 85025 ×3; 85610; 85730; 93005; 93306; 97162; 97530 ×5; 99285; A9270 ×8; A9577; J1650 ×4; J7030; J7040; Q9967; U0002; 84100; 93246; 96372; 97110-GP; 97116-GP; G0378